=== PATIENT | male | born 1950 | race Caucasian/White ===

== ENCOUNTER 2020-06-20 13:45 | Outpatient (CLI) | payer OTHER, SELFPAY ==
--- NOTE | 2020-06-20 13:56 | USCV_ITS ---
Justin Davis Age: 70 Gender: M : 1950 Exam Date: 06/20/2020 13:52 Ordering Phys: Juan David Resendez DO Technologist: Francy Abraham Exam Location: [facility] [place] Indication: STENOSIS Risk Factors: Previous Vascular Surgery: Known right occlusion, Right Brachial BP: / Left Brachial BP: / Right Left Velocity (cm/s) Spectral Plaque Velocity (cm/s) Spectral Plaque Syst/Diast Broadening Syst/Diast Broadening / Prox CCA 91.70 / 20.20 58.30/ 10.90 Mid CCA 78.30 / 20.90 27.20/ 7.80 Distal CCA 94.80 / 20.90 / Prox ICA 82.30 / 19.20 / Mid ICA 134.40/ 43.90 / Distal ICA 71.00 / 31.50 97.00 ECA 168.60 ICA/CCA 1.72 Antegrade Vertebral Antegrade 47.40/ 17.60 cm/s 38.70/ 16.50 cm/s Tri Subclavian Tri 139.8 81.50 0 FINDINGS Comparison:. 05/23/19. Known occluded right ICA. Right ECA not identified. Abnormal waveforms in the proximal right CCA due to the occlusion distally. Mild elevation of left ICA velocity, no change since the prior exam. Diffuse plaque in the left caroitd system. CONCLUSIONS Left ICA stenosis 50-69%. No interval change in stenosis since prior exam. Known occluded right ICA. Dr. Jackie Salazar DO (Electronically Signed) Final Date: 20 June 2020 15:03 S
== END 2020-06-20 13:46 | disposition home or self-care (01) ==
LOC: US 13:46
PROVIDERS: PCP Emergency Medicine Emergency Medical Services; Visit Provider Emergency Medicine Emergency Medical Services
DX: I65.23 Occlusion and stenosis of bilateral carotid arteries (principal)
CPT/HCPCS: 93880

== ENCOUNTER 2022-05-20 10:11 | Outpatient (CLI) | payer OTHER, SELFPAY ==
--- NOTE | 2022-05-20 | USCV_ITS ---
Justin Davis Age: 72 Gender: M : 1950 Exam Date: 05/20/2022 10:35 Ordering Phys: Juan David Resendez DO Technologist: CT Exam Location: [facility] [place] Indication: BILATERAL STENOSIS/OCCLUSION Risk Factors: Previous Vascular Surgery: Right Brachial BP: / Left Brachial BP: / Right Left Velocity (cm/s) Spectral Plaque Velocity (cm/s) Spectral Plaque Syst/Diast Broadening Syst/Diast Broadening 30.60/ 0.80 Prox CCA 111.90/ 20.20 15.30/ 0.80 Mid CCA 88.50 / 21.10 26.00/ 5.30 Distal CCA 80.60 / 23.80 52.80/ 14.30 Prox ICA 218.60/ 51.70 40.70/ 9.80 Mid ICA 155.40/ 44.40 / Distal ICA 211.60/ 42.30 ECA 162.20 1.73 ICA/CCA 1.95 Antegrade Vertebral Antegrade 72.80/ 22.10 cm/s 70.00/ 19.70 cm/s Tri Subclavian Tri 65.10 88.70 FINDINGS RT CCA OCCLUDED DISTALLY REVERSED ECA FLOWING INTO ANTEGRADE ICA MODERATE STENOSIS ON LEFT CONCLUSIONS Comparison 2020 Known Occluded RIght CCA distally. Reversed ECA with antegrade flow in the ICA Left ICA stenosis 50-69% with progressed velocities compared to previous at the upper end of the range. Moderate atheromatous plaque left carotid bulb/ICA. Recommend CTA in further evaluation Normal antegrade Doppler flow noted in the right vertebral artery. Normal antegrade Doppler flow noted in the left vertebral artery. . Dmitriy Valdovinos MD (Electronically Signed) Final Date: 20 May 2022 17:51 S
== END 2022-05-20 10:12 | disposition home or self-care (01) ==
LOC: RAD 10:15
PROVIDERS: PCP Emergency Medicine Emergency Medical Services; Visit Provider Emergency Medicine Emergency Medical Services
DX: I65.23 Occlusion and stenosis of bilateral carotid arteries (principal)
CPT/HCPCS: 93880

== ENCOUNTER → 2022-08-14 07:49 | Outpatient (BNVA) | payer OTHER, SELFPAY | PROVIDERS: PCP Emergency Medicine Emergency Medical Services; Visit Provider Thoracic Surgery (Cardiothoracic Vascular Surgery) | DX: I65.23 Occlusion and stenosis of bilateral carotid arteries (principal); Z87.891 Personal history of nicotine dependence | CPT/HCPCS: 99203 ==

== ENCOUNTER 2022-09-04 15:07 | Outpatient (CLI) | payer OTHER, SELFPAY ==
--- NOTE | 2022-09-04 15:30 | CT_ITS ---
WS: [id number] CTA NECK TECHNIQUE: Contrast enhanced CTA of the neck with coronal and sagittal reformatted images and maximum intensity projection (MIP) images. NASCET criteria utilized. CLINICAL INFORMATION: CAROTID STENOSIS COMPARISON: None. DLP: 352.[address] scans at [facility] use at least one of these dose optimization techniques: automated e xposure control; mA and/or kV adjustment per patient size (includes targeted exams where dose is matc hed to clinical indication); or iterative reconstruction. FINDINGS: RIGHT: Unchanged RIGHT ICA occlusion. Small amount of residual flow in the common carotid artery. LEFT: LEFT common carotid artery is patent. Dense calcified atheromatous plaque LEFT carotid bulb ext ending into the ICA. Stenosis measures approximately 60-70% with dense calcified atheromatous plaque. This is progressed compared to previous. LEFT ICA remains patent to the skull base. Dense cavernous carotid artery calcification partially visualized. Vertebral arteries are patent. Pro ximal basilar artery is patent. Densely calcified aortic arch. Moderate stenosis at the innominate origin. Subclavian arteries remain patent. Proximal RIGHT common carotid artery is patent. No significant flow in the distal RIGHT common carotid artery. Lung apices are well aerated. Mastoid air cells well aerated. Paranasal sinuses are well aerated. Ret ention cyst or polyp LEFT maxillary sinus measuring 13 mm. Moderate spondylitic changes cervical spin e. Straightening of the normal cervical lordosis. CT/CT angio neck [id number] IMPRESSION: Some images are degraded due to motion and beam Maldonado artifact. 1. Unchanged occlusion RIGHT ICA. Small amount of flow in the RIGHT common car otid artery. 2. Progressed stenosis LEFT proximal ICA with dense calcified atheromatous [place] que. Stenosis measures approximately 60-70%. LEFT ICA remains patent to the [facility] ll base. 3. Both vertebral arteries are patent. Proximal basilar artery is patent. 4. Moderate stenosis at the innominate artery origin which remains patent. Sub clavian arteries are patent.
[2022-09-04] MEDS: iohexol 350 mg/mL 500 mL Btl (per mL) IV (16:06)
== END 2022-09-04 15:08 | disposition home or self-care (01) ==
LOC: RAD 15:08
PROVIDERS: PCP Emergency Medicine Emergency Medical Services; Visit Provider Thoracic Surgery (Cardiothoracic Vascular Surgery)
DX: I65.23 Occlusion and stenosis of bilateral carotid arteries (principal)
CPT/HCPCS: 70498; Q9967

== ENCOUNTER → 2022-10-09 09:06 | Outpatient (BNVA) | payer OTHER, SELFPAY | PROVIDERS: PCP Emergency Medicine Emergency Medical Services; Visit Provider Thoracic Surgery (Cardiothoracic Vascular Surgery) | DX: I65.23 Occlusion and stenosis of bilateral carotid arteries (principal); Z87.891 Personal history of nicotine dependence; Z79.82 Long term (current) use of aspirin | CPT/HCPCS: 99213 ==

== ENCOUNTER 2023-04-13 09:16 | Outpatient (CLI) | payer OTHER, SELFPAY ==
--- NOTE | 2023-04-13 | USCV_ITS ---
Justin Davis Age: 73 Gender: M : 1950 Exam Date: 04/13/2023 09:29 Ordering Phys: Vishal Elkins MD (Andy) ([email or web address] [place]) Technologist: AJAY Exam Location: [facility] [place] Indication: Stenosis Risk Factors: Previous Vascular Surgery: Right Brachial BP: / Left Brachial BP: / Right Left Velocity (cm/s) Spectral Plaque Velocity (cm/s) Spectral Plaque Syst/Diast Broadening Syst/Diast Broadening 31.00/ 5.30 Prox CCA 114.70/ 19.80 8.90 / 3.50 Mid CCA 94.80 / 22.10 26.00/ 5.40 Distal CCA 78.30 / 19.80 76.10/ 17.60 Prox ICA 156.90/ 49.70 76.10/ 40.80 Mid ICA 93.30 / 29.90 39.70/ 17.60 Distal ICA 171.40/ 42.50 102.50 ECA 146.70 2.46 ICA/CCA 1.49 Antegrade Vertebral Antegrade 52.90/ 16.50 cm/s 63.90/ 26.50 cm/s Tri Subclavian Tri 103.5 163.1 0 0 FINDINGS comp 05/20/22 CONCLUSIONS Right ICA stenosis <50%. Right CEA.mild atheromatous plaque right carotid bulb/ICA. Left ICA stenosis 50-69%. Moderate atheromatous plaque left carotid bulb/ICA. Velocities slightly decreased compared to previous. Normal antegrade Doppler flow noted in the right vertebral artery. Normal antegrade Doppler flow noted in the left vertebral artery. Dmitriy Valdovinos MD (Electronically Signed) Final Date: 13 April 2023 12:40 S
== END 2023-04-13 09:17 | disposition home or self-care (01) ==
PROVIDERS: PCP Emergency Medicine Emergency Medical Services; Visit Provider Thoracic Surgery (Cardiothoracic Vascular Surgery)
DX: I65.23 Occlusion and stenosis of bilateral carotid arteries (principal)
CPT/HCPCS: 93880

== ENCOUNTER 2024-03-19 10:32 | Emergency (ER) | payer OTHER, SELFPAY ==
[2024-03-19] VITALS (10 sets, daily range): BP systolic 122–183; BP diastolic 48–85; PULSE 63–81; RESP 20–22; TEMP 36.7; O2SAT 84–95
--- NOTE | 2024-03-19 11:06 | CTR_ITS ---
PROCEDURE INFORMATION: Exam: CT Head Without Contrast Exam date and time: 03/19/2024 11:52 AM Age: 74 years old Clinical indication: Injury or trauma; Fall; Blunt trauma (contusions or hematomas); Additional info: Fall, head injury TECHNIQUE: Imaging protocol: Computed tomography of the head without contrast. Radiation optimization: All CT scans at this facility use at least one of these dose optimization techniques: automated exposure control; mA and/or kV adjustment per patient size (includes targeted exams where dose is matched to clinical indication); or iterative reconstruction. COMPARISON: CT angio headneck* [id number] 07/15/2018 6:39 PM RADIATION DOSE METRICS: Total DLP (mGy-cm): 1183.45 FINDINGS: Brain: No intracranial hemorrhage. There is global parenchymal volume loss. Periventricular white matter hypoattenuation is nonspecific but most likely due to small vessel disease. No evidence of acute territorial infarct or cerebral edema. No mass effect or midline shift. Right parietal encephalomalacia. Cerebral ventricles: Prominent ventricles likely secondary to volume loss. Paranasal sinuses: Visualized sinuses are unremarkable. No fluid levels. Mastoid air cells: Visualized mastoid air cells are well aerated. Bones: Unremarkable. No acute fracture. Soft tissues: Unremarkable. CT/CT head wo con* [id number] IMPRESSION: No acute intracranial findings.
--- NOTE | 2024-03-19 11:06 | CTR_ITS ---
PROCEDURE INFORMATION: Exam: CT Chest Without Contrast; Diagnostic Exam date and time: 03/19/2024 11:55 AM Age: 74 years old Clinical indication: Injury or trauma; Fall; Lower; Blunt trauma (contusions or hematomas); Additional info: Fall, left rib and low back pain TECHNIQUE: Imaging protocol: Diagnostic computed tomography of the chest without contrast. Radiation optimization: All CT scans at this facility use at least one of these dose optimization techniques: automated exposure control; mA and/or kV adjustment per patient size (includes targeted exams where dose is matched to clinical indication); or iterative reconstruction. COMPARISON: CR XR chest 1V [id number] 07/16/2018 3:55 AM RADIATION DOSE METRICS: Total DLP (mGy-cm): 1355.98 FINDINGS: Thyroid: Thyroid is normal. Lungs: Consolidative opacities in the inferior-posterior left upper lobe measuring up to 4.1 cm. Additional consolidative opacities in the bilateral dependent lung bases. Pleural spaces: Small bilateral pleural effusions. Heart: Heart is normal in size. No pericardial effusion. Coronary arteries: Coronary artery calcifications. Lymph nodes: Prominent sub threshold upper mediastinal lymph nodes. Vasculature: Moderate to severe calcific disease of the thoracic aorta and its major branches. Bones/joints: Multilevel thoracic spondylosis. Chronic/healed nondisplaced fracture deformity of the left 9th rib laterally. No acute osseous findings. Soft tissues: Visualized superficial soft tissues are within normal limits. PROCEDURE INFORMATION: Exam: CT Abdomen And Pelvis Without Contrast Exam date and time: 03/19/2024 11:55 AM Age: 74 years old Clinical indication: Injury or trauma; Fall; Lower; Blunt trauma (contusions or hematomas); Additional info: Fall, left rib and low back pain TECHNIQUE: Imaging protocol: Computed tomography of the abdomen and pelvis without contrast. Radiation optimization: All CT scans at this facility use at least one of these dose optimization techniques: automated exposure control; mA and/or kV adjustment per patient size (includes targeted exams where dose is matched to clinical indication); or iterative reconstruction. COMPARISON: CR XR chest 1V [id number] 07/16/2018 3:55 AM RADIATION DOSE METRICS: Total DLP (mGy-cm): 1355.98 FINDINGS: Liver: The liver is unremarkable. Gallbladder and biliary ducts: Status post cholecystectomy. No biliary ductal dilation. Pancreas: Moderate atrophy of the pancreas. No pancreatic ductal dilation. Spleen: The spleen is unremarkable. Adrenal glands: The adrenal glands are unremarkable. Kidneys and ureters: Kidneys are normal. No hydronephrosis or nephrolithiasis. Stomach and bowel: Nonobstructive bowel-gas pattern. Appendix: The appendix is normal. Intraperitoneal space: No significant free fluid in the abdomen or pelvis. Vasculature: Moderate to severe calcific disease of the abdominal aorta and its major branches. No abdominal aortic aneurysm. Lymph nodes: No distinct pathologically enlarged lymphadenopathy. Urinary bladder: Urinary bladder is within normal limits. Reproductive: Visualized reproductive structures are within normal limits. Bones/joints: Multilevel spondylosis. Age-indeterminate compression deformity of the vertebral body L2, with approximately 25% height loss centrally and negligible retropulsion posteriorly. Chronic appearing grade 1 retrolisthesis of L5 on S1. Soft tissues: Small bilateral fat containing inguinal hernias. CT/[place] [id number] IMPRESSION: 1. Small bilateral pleural effusions. 2. Consolidative opacities in the inferoposterior left upper lobe measuring up to 4.1 cm. Additional consolidative opacities in the bilateral dependent lung bases. Overall, these have an appearance most consistent with aspiration pneumonitis in combination with dependent atelectasis. Pulmonary contusion is considered unlikely. An infectious infiltrate is not excluded. Recommend correlation with lab values. Underlying pulmonary nodules versus spiculated mass in the inferior left upper lobe is also not excluded. Recommend follow-up CT chest without contrast in 1-3 months upon resolution of current symptoms. IMPRESSION: 1. Age-indeterminate compression deformity of the vertebral body L2, with approximately 25% height loss centrally and negligible retropulsion posteriorly. Recommend correlation for point tenderness at this location. 2. Chronic appearing grade 1 retrolisthesis of L5 on S1.
[2024-03-19] MEDS: albuterol 2.5 mg/3 mL Neb INHALATION (11:17)
[2024-03-19] MEDS: ipratropium-albuterol 3 mL Neb INHALATION (11:17)
[2024-03-19 11:22] LABS: Basophils % 0.3 %; Eosinophils # 0.1 10^3/uL (0.0-0.8); Eosinophils % 0.8 %; Hematocrit 40.1 % (37-53); Lymphocytes # 0.6 10^3/uL (0.8-4.8); Lymphocytes % 9.3 %; Mean Corpuscular HGB Conc 30.4 g/dL (30-55); Mean Corpuscular Hemoglobin 28.7 pg (27-33); Mean Corpuscular Volume 94.4 fl (82-101); Mean Platelet Volume 10.2 fL (7.4-10.4); Monocytes # 0.9 10^3/uL (0.2-0.9); Neutrophils # 4.53 10^3/uL (1.8-7.7); Neutrophils % 74.1 %; Nucleated Red Blood Cells % 0 %; Platelet Count 237 10^3/cmm (157-399); Red Blood Count 4.25 10^6/uL (3.85-5.65); Red Cell Distribution Width 17.8 % (12.1-15.1); White Blood Count 6.12 10^3/uL (3.29-11.43)
--- NOTE | 2024-03-19 11:35 | ECG_ITS ---
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 Measurements Intervals [place] Rate: 78 P: 0 MS: 0 QRS: 262 QRSD: 142 T: -3 QT: 397 QTc: 453 Interpretive Statements ATRIAL FIBRILLATION RIGHT AXIS DEVIATION [QRS AXIS > 100] RIGHT BUNDLE BRANCH BLOCK [120+ ms QRS DURATION, UPRIGHT V1, 40+ ms S IN I/aVL/V4/V5/V6] PROBABLE SEPTAL MYOCARDIAL INFARCTION , OF INDETERMINATE AGE [35 ms Q WAVE IN V1/V2] Compared to ECG 07/16/2018 10:07:51 Myocardial infarct finding now present Sinus rhythm no longer present Ventricular premature complex(es) no longer present Electronically Signed On 03-19-2024 18:48:01 CDT by Micheal Mcclain M.D. [id number]
[2024-03-19] MEDS: methylPREDNISolone sod succ 125 mg/2 mL INJ IVP (11:36)
[2024-03-19 11:42] LABS: Troponin(5th) Baseline 26 ng/L (0-15)
[2024-03-19 11:43] LABS: Lactic Sepsis W/Reflex 1.3 mmol/L (0.5-2.2)
[2024-03-19 11:48] LABS: ABG PCO2 51.6 mmHg (35-45); ABG PH Result 7.48 (7.35-7.45); Alveolar-Arterial Oxygen Gradi 17.8 mmHg (5-10); Arterial Blood Gas Hematocrit 37.6 % (42-52); Base Excess ABG 12.7 mmol/L (-2.0-2.0); Blood Gas Operator Identificat AMH; Blood Gas Sample Site Brachial, right; Blood Gas Sample Type Arterial; Carboxyhemoglobin 1.4 %THgb (0.4-20.1); HCO3 ABG 38.2 mmol/L (22-26); HGB O2 Sat 88.9 % (95-100); Ionized Calcium Level - ABG 1.2 mmol/L (1.1-1.4); Oxygen Device NC; Oxygen Saturation ABG 91.1; PO2 ABG 58.7 mmHg (80.0-100.0); PO2 FiO2 Ratio Arterial Blood 163; Potassium Level - ABG 3.9 mmol/L (3.5-5.0); Total Hemoglobin 12.3 g/dL (14-18)
[2024-03-19 11:53] LABS: Alanine Aminotransferase 22 U/L (0-41); Albumin Level 3.4 g/dL (3.5-5.2); Alkaline Phosphatase 85 U/L (40-130); Anion Gap 13.8 (5-19); Aspartate Amino Transferase 22 U/L (0-40); Blood Urea Nitrogen 14 mg/dL (8-23); C Reactive Protein 82.3 mg/L (0.0-4.9); Calcium 8.5 mg/dL (8.5-10.5); Carbon Dioxide 34 mmol/L (22-29); Chloride 94 mmol/L (98-107); Creatinine Clr Calc Pharmacy 82.9488; Globulin 2.6 g/dL (1.3-4.6); Glucose 118 mg/dL (65-115); NT Pro B Type Natriuretic Pept 1494 pg/mL (0-450); Osmolality Calculated 288 mOsm/kg (285-295); Potassium 3.8 mmol/L (3.5-5.1); Sodium 138 mmol/L (136-145); Total Bilirubin 0.7 mg/dL (0.15-1.2)
--- NOTE | 2024-03-19 12:21 | ED_ITS ---
HPI - SOB/Dyspnea 2 General: Chief Complaint: Shortness of Breath/Dyspnea Stated Complaint: sob, partial loss of vision Time Seen by Provider: 03/19/24 10:53 History of Present Illness: HPI Narrative: 74-year-old man with a history of morbid obesity, COPD, chronic hypoxemic respiratory failure on 3 L nasal cannula at all times, carotid artery disease status post intervention and on Pradaxa, hypertension, hyperlipidemia, chronic pain syndrome who presents to the emergency room with several complaints. First he says he over the last couple of days has had change in his vision. He says when he covers his left eye. And looks out of his right eye. Vision is blurry in the upper half of his vision. No headaches. Does not describe a curtain coming down. On exam red reflexes reviewed throughout the pupillary field. No altered mental status. No focal motor deficits. He also says he has been more short of breath lately. Increased cough. No increased oxygen requirement. says he is wanting to sleep all of the time. Finally he says he had a fall about a week ago and refused to come into the emergency room. He is having pain in his right lateral rib cage and his low back. This has become much worse and may have been the primary reason he finally decided to come into the emergency room. Related Data Home Medications Medication Instructions Recorded Confirmed albuterol sulfate 90 mcg/actuation 2 puff inhalation Q6H PRN 08/14/22 10/09/22 aerosol inhaler (ProAir HFA) aspirin 81 mg tablet,delayed 81 mg PO DAILY 08/14/22 10/09/22 release cholecalciferol (vitamin D3) 25 25 mcg PO DAILY 08/14/22 10/09/22 mcg (1,000 unit) capsule dabigatran etexilate 150 mg 150 mg PO BID 08/14/22 10/09/22 capsule (Pradaxa) furosemide 20 mg tablet 20 mg PO DAILY 08/14/22 10/09/22 guaifenesin 400 mg tablet 400 mg PO TID 08/14/22 10/09/22 hydrocodone 7.5 mg-acetaminophen 1 tab PO Q6H PRN 08/14/22 10/09/22 325 mg tablet lisinopril 20 mg tablet 20 mg PO DAILY 08/14/22 10/09/22 metoprolol tartrate 50 mg tablet 50 mg PO BID 08/14/22 10/09/22 mometasone 220 mcg/actuation(120 2 inh inhalation DAILY 08/14/22 10/09/22 doses)breath activated powder inhaler (Asmanex Twisthaler) simvastatin 40 mg tablet 40 mg PO DAILY 08/14/22 10/09/22 Previous Rx's Medication Instructions Recorded cyclobenzaprine 5 mg tablet 5 mg PO BEDTIME PRN muscle spasm 03/19/24 #10 tabs doxycycline hyclate 100 mg capsule 100 mg PO BID 7 days #14 caps 03/19/24 oxycodone 10 mg tablet 10 mg PO Q8H PRN pain #30 tabs 03/19/24 prednisone 20 mg tablet 60 mg (3 x 20 mg) PO DAILY #20 tabs 03/19/24 Allergies Allergy/AdvReac Type Severity Reaction Status Date / Time No Known Allergies Allergy Verified 03/19/24 10:45 Review of Systems 2 Narrative: Constitutional symptoms: Negative except as documented in HPI. Skin symptoms: Negative except as documented in HPI. Eye symptoms: Negative except as documented in HPI. ENMT symptoms: Negative except as documented in HPI. Respiratory symptoms: Negative except as documented in HPI. Cardiovascular symptoms: Negative except as documented in HPI. Gastrointestinal symptoms: Negative except as documented in HPI. Genitourinary symptoms: Negative except as documented in HPI. Musculoskeletal symptoms: Negative except as documented in HPI. Neurologic symptoms: Negative except as documented in HPI. Psychiatric symptoms: Negative except as documented in HPI. Endocrine symptoms: Negative except as documented in HPI. PFSH ED 2 PFSH: Medical History (Updated 03/19/24 @ 14:18 by Suzette Ritter MD) 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 Carotid stenosis, bilateral Family History Father CAD (coronary artery disease) Hypertension Mother Cancer Diabetes Hypertension Brother Cancer Diabetes Hypertension Social History Smoking and tobacco/nicotine status: former use of tobacco/nicotine Quit status (tobacco/nicotine): has quit using Year quit tobacco: 2009 Former quit date comment: 2 PACK PER DAY X 40 YEARS Alcohol intake: current Alcohol intake frequency: 3 or more drinks per day Substance/Drug Use: never Household members: spouse Marital status: Number of children: 2 service: Yes Pets and animals: Yes Pets & animals: cat(s) and dog(s) Physical Exam 2 Narrative: EXAM NARRATIVE: General: Alert, no acute distress. Skin: Warm, dry. Head: Normocephalic, atraumatic. Neck: Supple, trachea midline. Eye: Extraocular movements are intact. Reports right upper visual field blurriness. Red reflexes reviewed throughout the pupillary field. Ears, nose, mouth and throat: mucosa moist. Cardiovascular: Regular, Normal peripheral perfusion. Respiratory: Lungs are clear to auscultation, respirations are non-labored, breath sounds are equal, Symmetrical chest wall expansion. Gastrointestinal: Soft, Nontender, Non distended Musculoskeletal: Normal ROM, no deformity. Neurological: Alert and oriented, No focal neurological deficit observed. Psychiatric: Cooperative, appropriate mood & affect. Course 2 Vital Signs: Vital signs: Vital Signs Temperature 98.1 F 03/19/24 10:39 Pulse Rate 63 03/19/24 14:45 Respiratory Rate 22 H 03/19/24 11:45 Blood Pressure 152/68 03/19/24 14:45 Pulse Oximetry 95 03/19/24 14:45 Oxygen Delivery Me thod Room Air 03/19/24 12:00 Oxygen Flow Rate 4 03/19/24 11:36 MDM - SOB/Dyspnea Medical Decision Making Medical decision making: Differential diagnosis including but not limited to and based on the above HPI, review of systems and physical exam: Would have concern for stroke with his vision changes so a head CT was ordered. Likely more an ocular problem and will need to see ophthalmology. With his trauma have ordered a CT of the chest abdomen pelvis to rule out any rib fractures pneumothorax etc. Intra-abdominal or back injuries. With a shortness of breath of ordered an ABG and the lungs can be evaluated with the chest CT. Orders placed to evaluate differential diagnosis based on the above differential, HPI and physical exam EKG: Time 1135. Rate 78. Atrial fibrillation with controlled rate, No ST-T changes, no ectopy, This was reviewed and interpreted by myself the ER physician at 11:40 AM. Repeat EKG: Time 1259. Rate 74. Atrial fibrillation with controlled rate, No ST-T changes, no ectopy, This was reviewed and interpreted by myself the ER physician at 103. No significant changes from EKG done previously today in the emergency room. Lab Review: Laboratory results were reviewed and interpreted by myself the emergency room physician. No leukocytosis. No anemia. BUN and creatinine are normal at 14 and 0.9. Bicarb is elevated at 34 likely compensating for his chronic hypercapnic respiratory failure. AB.48/52/59. With an O2 sat of 89% on 4 L nasal cannula. Some mild hypercapnia that is compensated. I reviewed the patient's medical record. Reexamination: Patient remained stable. No increased work of breathing. No altered mental status. No focal motor deficits. He remained stable on his oxygen. Still with some low back pain. We discussed the pulmonary nodule and that he will need surveillance. Discussed the issues with his eye and he will follow-up with ophthalmology in the next few days. Assessment and plan: Fall Vertebral compression fracture Rib contusion COPD with acute exacerbation Chronic hypoxemic respiratory failure Morbid obesity Pulmonary nodule Vision changes ?Solu-Medrol and breathing treatments here in the emergency room ? Pain medications. He is on a pain contract but I am going to place him on temporary oxycodone for this acute injury to his back. ? Stable on his home 3 to 4 L nasal cannula. - Discharged home - Discussed findings and plan with patient. Answered any questions. - All laboratory values were reviewed and interpreted personally by myself, the ER physician - All imaging was reviewed and interpreted personally by myself, the ER physician. - Evaluation and treatment of this problem were appropriate in the emergency setting Lab Data 03/19/24 11:10 03/19/24 11:10 Labs/Radiology: Radiology Impressions Chest/Abdomen/Pelvis CT 03/19/24 11:06 IMPRESSION: 1. Small bilateral pleural effusions. 2. Consolidative opacities in the inferoposterior left upper lobe measuring up to 4.1 cm. Additional consolidative opacities in the bilateral dependent lung bases. Overall, these have an appearance most consistent with aspiration pneumonitis in combination with dependent atelectasis. Pulmonary contusion is considered unlikely. An infectious infiltrate is not excluded. Recommend correlation with lab values. Underlying pulmonary nodules versus spiculated mass in the inferior left upper lobe is also not excluded. Recommend follow-up CT chest without contrast in 1-3 months upon resolution of current symptoms. IMPRESSION: 1. Age-indeterminate compression deformity of the vertebral body L2, with approximately 25% height loss centrally and negligible retropulsion posteriorly. Recommend correlation for point tenderness at this location. 2. Chronic appearing grade 1 retrolisthesis of L5 on S1. Head CT 03/19/24 11:06 IMPRESSION: No acute intracranial findings. Laboratory Results WBC 6.12 10^3/uL (3.29-11.43) 03/19/24 11:10 RBC 4.25 10^6/uL (3.85-5.65) 03/19/24 11:10 Hgb 12.20 g/dL (11.27-16.99) 03/19/24 11:10 Hct 40.1 % (37-53) 03/19/24 11:10 MCV 94.4 fl (82-101) 03/19/24 11:10 MCH 28.7 pg (27-33) 03/19/24 11:10 MCHC 30.4 g/dL (30-55) 03/19/24 11:10 RDW 17.8 % (12.1-15.1) H 03/19/24 11:10 Plt Count 237 10^3/cmm (157-399) 03/19/24 11:10 MPV 10.2 fL (7.4-10.4) 03/19/24 11:10 Neut % (Auto) 74.1 % 03/19/24 11:10 Lymph % (Auto) 9.3 % 03/19/24 11:10 [place] % (Auto) 15.0 % 03/19/24 11:10 Eos % (Auto) 0.8 % 03/19/24 11:10 Baso % (Auto) 0.3 % 03/19/24 11:10 Neut # (Auto) 4.53 10^3/uL (1.8-7.7) 03/19/24 11:10 Lymph # (Auto) 0.6 10^3/uL (0.8-4.8) L 03/19/24 11:10 [place] # (Auto) 0.9 10^3/uL (0.2-0.9) 03/19/24 11:10 Eos # (Auto) 0.1 10^3/uL (0.0-0.8) 03/19/24 11:10 Baso # (Auto) 0.0 10^3/uL (0.0-0.1) 03/19/24 11:10 Nucleated RBC % (auto) 0 % 03/19/24 11:10 Nucleated RBCs # 0.0 /100WBC 03/19/24 11:10 Specimen Type Arterial 03/19/24 11:35 Sample Site Brachial, right 03/19/24 11:35 ABG pH 7.48 (7.35-7.45) H 03/19/24 11:35 ABG pCO2 51.6 mmHg (35-45) H 03/19/24 11:35 ABG pO2 58.7 mmHg (80.0-100.0) L 03/19/24 11:35 ABG PO2/FiO2 Ratio 163 03/19/24 11:35 ABG HCO3 38.2 mmol/L (22-26) H 03/19/24 11:35 ABG O2 Saturation 91.1 03/19/24 11:35 ABG Base Excess 12.7 mmol/L (-2.0-2.0) H 03/19/24 11:35 Valdo Test N/a 03/19/24 11:35 A-a O2 Gradient 17.8 mmHg (5-10) H 03/19/24 11:35 Hematocrit 37.6 % (42-52) L 03/19/24 11:35 Hgb O2 Saturation 88.9 % (95-100) L 03/19/24 11:35 Carboxyhemoglobin 1.4 %THgb (0.4-20.1) 03/19/24 11:35 Methemoglobin 1.0 % (0.4-1.5) 03/19/24 11:35 Total Hemoglobin 12.3 g/dL (14-18) L 03/19/24 11:35 Sodium 138.0 mmol/L (131-143) 03/19/24 11:35 Potassium 3.9 mmol/L (3.5-5.0) 03/19/24 11:35 Glucose 106.0 mg/dL (70-115) 03/19/24 11:35 Ionized Calcium 1.2 mmol/L (1.1-1.4) 03/19/24 11:35 O2 Delivery Device Nc 03/19/24 11:35 O2 Liters/Min 4.0 % 03/19/24 11:35 FiO2 36.0 % 03/19/24 11:35 Installation And Service Technician ID [facility]h 03/19/24 11:35 Sodium 138 mmol/L (136-145) 03/19/24 11:10 Potassium 3.8 mmol/L (3.5-5.1) 03/19/24 11:10 Chloride 94 mmol/L (98-107) L 03/19/24 11:10 Carbon Dioxide 34 mmol/L (22-29) H 03/19/24 11:10 Anion Gap 13.8 (5-19) 03/19/24 11:10 BUN 14 mg/dL (8-23) 03/19/24 11:10 Creatinine 0.9 mg/dL (0.7-1.2) 03/19/24 11:10 GFR Calculation Not Reportable 03/19/24 11:10 Glucose 118 mg/dL (65-115) H 03/19/24 11:10 Calculated Osmolality 288 mOsm/kg (285-295) 03/19/24 11:10 Lactic Acid 1.3 mmol/L (0.5-2.2) 03/19/24 11:10 Calcium 8.5 mg/dL (8.5-10.5) 03/19/24 11:10 Total Bilirubin 0.7 mg/dL (0.15-1.2) 03/19/24 11:10 AST 22 U/L (0-40) 03/19/24 11:10 ALT 22 U/L (0-41) 03/19/24 11:10 Alkaline Phosphatase 85 U/L (40-130) 03/19/24 11:10 Troponin T Baseline 26 ng/L (0-15) H 03/19/24 11:10 Troponin T 120 Minute 18.91 ng/L (0-15) H 03/19/24 13:22 Delta Troponin T -7.09 ABS# (0-10) L 03/19/24 13:22 C-Reactive Protein 82.3 mg/L (0.0-4.9) H 03/19/24 11:10 NT-Pro-B Natriuret Pep 1494 pg/mL (0-450) H 03/19/24 11:10 Total Protein 6.0 g/dL (6.6-8.7) L 03/19/24 11:10 Albumin 3.4 g/dL (3.5-5.2) L 03/19/24 11:10 Globulin 2.6 g/dL (1.3-4.6) 03/19/24 11:10 Urine Color Yellow (Yellow) 03/19/24 12:16 Urine Appearance Clear (CLEAR) 03/19/24 12:16 Urine pH 7.0 (5-7) 03/19/24 12:16 Ur Specific [place] 1.012 (1.005-1.030) 03/19/24 12:16 Urine Protein Negative (Negative) 03/19/24 12:16 Urine Glucose (UA) Negative (Normal) 03/19/24 12:16 Urine Ketones Negative (Negative) 03/19/24 12:16 Urine Blood Negative (Negative) 03/19/24 12:16 Urine Nitrate Negative (Negative) 03/19/24 12:16 Urine Bilirubin Negative (Negative) 03/19/24 12:16 Urine Urobilinogen 1.0 mg/dL (Negative) 03/19/24 12:16 Ur Leukocyte Esterase Trace (Negative) A 03/19/24 12:16 Urine RBC 0-2 /hpf (0-2) 03/19/24 12:16 Urine WBC 0-5 /hpf (0-5) 03/19/24 12:16 Ur Squamous Epith Cells 0-5 /hpf (0-5) 03/19/24 12:16 Amorphous Sediment Not Reportable 03/19/24 12:16 Urine Bacteria None seen /hpf (NONE) 03/19/24 12:16 Hyaline Casts 1.65 /lpf 03/19/24 12:16 All radiology interpretation(s) finalized by discharge Discharge Plan Discharge Patient Disposition: Home Clinical Impression: Rib contusion, COPD with acute exacerbation, Chronic hypoxemic respiratory failure, Chronic pain syndrome, Morbid obesity, Pulmonary nodules Closed compression fracture of L2 vertebra Qualifiers: Encounter type: initial encounter Qualified Code(s): S32.020A - Wedge compression fracture of second lumbar vertebra, initial encounter for closed fracture Condition: Stable Prescriptions: New doxycycline hyclate 100 mg capsule 100 mg PO BID 7 Days Qty: 14 0RF prednisone 20 mg tablet 60 mg PO DAILY Qty: 20 0RF Rx Instructions: 3 tabs (60 mg) x 3 days. 2 tabs (40 mg) x 3 days. 1 tab (20 mg) x 3 days. 1/2 tab (10 mg) x 4 days cyclobenzaprine 5 mg tablet 5 mg PO BEDTIME PRN (Reason: muscle spasm) Qty: 10 0RF oxycodone 10 mg tablet 10 mg PO Q8H PRN (Reason: pain) Qty: 30 0RF No Action Asmanex Twisthaler 220 mcg/ actuation (120) aerosol powdr breath activated 2 inh inhalation DAILY simvastatin 40 mg tablet 40 mg PO DAILY lisinopril 20 mg tablet 20 mg PO DAILY metoprolol tartrate 50 mg tablet 50 mg PO BID cholecalciferol (vitamin D3) 25 mcg (1,000 unit) capsule 25 mcg PO DAILY hydrocodone-acetaminophen 7.5-325 mg tablet 1 tab PO Q6H PRN aspirin 81 mg tablet,delayed release (DR/EC) 81 mg PO DAILY albuterol sulfate [ProAir HFA] 90 mcg/actuation HFA aerosol inhaler 2 puff inhalation Q6H PRN furosemide 20 mg tablet 20 mg PO DAILY dabigatran etexilate [Pradaxa] 150 mg capsule 150 mg PO BID guaifenesin 400 mg tablet 400 mg PO TID Discharge Orders: Discharge ED (Routine); Ordered 03/19/24 Ordered By: Suzette Ritter Referrals: Juan David Resendez DO [Primary Care Provider] - Discharge Diet: Usual diet Discharge Activity: Resume usual activity Patient Instructions: Vertebral Compression Fracture (ED), Pulmonary Nodules (ED), Opioid Safety Activity Restrictions/Additional Instructions: A pulmonary nodule was seen on imaging. This will need follow up imaging with your primary provider. Please schedule an appointment concerning this. Thank you for choosing [facility] for your healthcare needs today. Please realize this is an emergency room and that we are providing you with a medical screening exam and this may not be complete and all inclusive of all the testing and or work up that you may need to determine your ailment or severity of your illness. You have been screened and evaluated and felt safe for discharge. Health conditions do change or evolve sometimes and as such it is important that you follow up with your Primary Doctor to be re checked, 3-5 days is a general good time frame for follow up. You are always welcome to return to the ED for re assessment if your symptoms are worsening or you have new concerns Coding Level of Care Code ED Hand Knitter for Chg Fwd
[2024-03-19 12:26] LABS: Bilirubin Urine Negative (Negative); Blood Urine Negative (Negative); Glucose Urine UA Negative (Normal); Ketones Urine Negative (Negative); Leukocyte Esterase Urine Trace (Negative); Nitrate Urine Negative (Negative); Protein Urine Negative (Negative); Specific Gravity, Urine 1.012 (1.005-1.030); Urine Appearance Clear (CLEAR); Urine Color Yellow (Yellow)
[2024-03-19 12:29] LABS: Bacteria Urine None Seen /hpf; Hyaline Casts Urine 1.65 /lpf; RBC Urine 0-2 /hpf (0-2); Squamous Epithelial Cell Urine 0-5 /hpf (0-5); WBC Urine 0-5 /hpf (0-5)
[2024-03-19] MEDS: HYDROcodone-acetaminophen 5-325 mg Tablet 1 TAB PO (12:50)
--- NOTE | 2024-03-19 12:59 | ECG_ITS ---
[facility] Test Date: 2024-03-19 Pat Name: Justin Davis Department: Room: Gender: Male [place]: : 1950 Requested By: Suzette Patino Order Number: [id number] Duc MD: Micheal Mcclain M.D. Measurements Intervals [place] Rate: 74 P: 0 TN: 0 QRS: -86 QRSD: 146 T: -6 QT: 409 QTc: 454 Interpretive Statements ATRIAL FIBRILLATION RIGHT BUNDLE BRANCH BLOCK [120+ ms QRS DURATION, UPRIGHT V1, 40+ ms S IN I/aVL/V4/V5/V6] LEFT ANTERIOR FASCICULAR BLOCK [QRS AXIS <= -45, QR IN I, RS IN II] Compared to ECG 03/19/2024 11:35:29 Left anterior fascicular block now present Right-axis deviation no longer present Myocardial infarct finding no longer present Electronically Signed On 03-19-2024 18:52:13 CDT by Micheal Mcclain M.D. [id number]
[2024-03-19 13:52] LABS: Troponin 5 2HR 18.91 ng/L (0-15)
[2024-03-19 14:05] LABS: Troponin 5 2HR Delta -7.09 ABS# (0-10)
== END 2024-03-19 14:32 | disposition home or self-care (01) ==
PROVIDERS: Emergency Provider Emergency Medicine; PCP Emergency Medicine Emergency Medical Services
DX: J44.1 Chronic obstructive pulmonary disease with (acute) exacerbation (principal); J96.11 Chronic respiratory failure with hypoxia; G89.4 Chronic pain syndrome; E66.01 Morbid (severe) obesity due to excess calories; Z68.41 Body mass index [BMI] 40.0-44.9, adult; R91.8 Other nonspecific abnormal finding of lung field; S32.020A Wedge compression fracture of second lumbar vertebra, initial encounter for closed fracture; S20.211A Contusion of right front wall of thorax, initial encounter; Z79.82 Long term (current) use of aspirin; I48.91 Unspecified atrial fibrillation; Z87.891 Personal history of nicotine dependence; Z99.81 Dependence on supplemental oxygen; I10 Essential (primary) hypertension; E78.5 Hyperlipidemia, unspecified; W19.XXXA Unspecified fall, initial encounter
CPT/HCPCS: 36415; 36600; 70450; 71250; 74176; 80051; 80053; 81001; 82330; 82805; 83605; 83880; 84484; 85025; 86140; 93005; 94640; 96374; 99285; J2919; J7613

== ENCOUNTER 2024-05-19 10:28 | Outpatient (CLI) | payer OTHER, SELFPAY ==
--- NOTE | 2024-05-19 10:33 | MR_ITS ---
WS: [id number] MRI HEAD/ORBITS WITH AND WITHOUT CONTRAST. COMPARISON: CT head 03/19/2024 Multiplanar, multisequence imaging is performed with and without contrast. MultiHance 20 mL. Symmetric appearance of the orbits and globes. Normal signal within the globes. Optic nerves are symm etric in size with no enhancement. No enlargement. Extraocular muscles are all normal size. Normal op tic chiasm and optic radiations. No enhancing mass. No optic neuritis. Normal diffusion imaging. No evidence for an acute infarct. Chronic infarct with encephalomalacia and surrounding gliosis centered in the posterior RIGHT parietal lobe. No enhancement on the postcontras t imaging. There are a few additional scattered T2 and FLAIR signal hyperintensities throughout the w romulo matter slightly greater distribution on the RIGHT. Prior lacunar infarct in the LEFT thalamus. M oderate volume loss and atrophy in the cerebrum. Mild cerebellar atrophy. No prior cerebellar infarct . Ventricles and extra-axial spaces are mildly prominent on the basis of central and peripheral atrophy . No enhancing masses. No vascular malformations. No paranasal sinus disease. Mastoids are clear. Normal calvarium. MR/MR head orbits wo/w* [id number] IMPRESSION: 1. Normal appearance of the orbits and globes. 2. No optic neuritis or mass. 3. No mass effect upon the optic chiasm. 4. 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 5. Prior LEFT thalamic infarct. 6. Mild small vessel ischemic disease, greater throughout the RIGHT white amie er.
[2024-05-19] MEDS: gadobenate dimeglumine 20 mL vial IV (11:30)
== END 2024-05-19 10:29 | disposition home or self-care (01) ==
LOC: RAD 10:30
PROVIDERS: PCP Nurse Practitioner Family; Visit Provider Student in an Organized Health Care Education/Training Program
DX: G31.9 Degenerative disease of nervous system, unspecified (principal); H53.139 Sudden visual loss, unspecified eye; Z86.73 Personal history of transient ischemic attack (TIA), and cerebral infarction without residual deficits; G93.89 Other specified disorders of brain; I63.81 Other cerebral infarction due to occlusion or stenosis of small artery
CPT/HCPCS: 70543; 70553; A9577

== ENCOUNTER 2024-10-01 08:34 | Inpatient (IN) | payer OTHER, SELFPAY ==
[2024-10-01] VITALS (33 sets, daily range): BP systolic 94–203; BP diastolic 53–117; PULSE 66–87; RESP 16–27; TEMP 36.8; O2SAT 84–97; BMI 43.7
--- NOTE | 2024-10-01 08:37 | XRR_ITS ---
PROCEDURE INFORMATION: Exam: XR Chest Exam date and time: 10/01/2024 8:57 AM Age: 74 years old Clinical indication: Cough and dyspnea; Additional info: Dyspnea/cough TECHNIQUE: Imaging protocol: Radiologic exam of the chest. Views: 1 view. Total images: 1 COMPARISON: [place] [id number] 03/19/2024 11:55 AM chest x-ray 07/16/2018 FINDINGS: Lungs: Bibasilar and peripheral right mid lung predominantly interstitial densities are noted, representing a change from previous. Pleural spaces: Blunting of the costophrenic angles, consistent with small pleural effusions or pleural thickening. Heart/Mediastinum: Heart appears enlarged as compared with 07/16/2018. Bones/joints: No acute osseous abnormality identified. XR/XR chest 1V portable [id number] IMPRESSION: 1. Cardiomegaly 2. Bibasilar and right midlung opacities which may relate to aspiration, atelectasis or early pneumonia particularly at the right lung base. 3. Mild small bilateral pleural effusions.
--- NOTE | 2024-10-01 08:42 | ECG_ITS ---
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 Measurements Intervals [place] Rate: 84 P: 38 TX: 190 QRS: 259 QRSD: 157 T: 41 QT: 416 QTc: 493 Interpretive Statements SINUS RHYTHM WITH OCCASIONAL SUPRAVENTRICULAR PREMATURE COMPLEXES RIGHT AXIS DEVIATION [QRS AXIS > 100] RIGHT BUNDLE BRANCH BLOCK [120+ ms QRS DURATION, UPRIGHT V1, 40+ ms S IN I/aVL/V4/V5/V6] INTERPRETATION BASED ON A DEFAULT AGE OF 40 YEARS Compared to ECG 03/19/2024 12:59:25 Right-axis deviation now present Atrial fibrillation no longer present Left anterior fascicular block no longer present Electronically Signed On 10-01-2024 17:57:51 ASSISTANT BRAND MANAGER by Gianfranco Choudhary M.D. [email or web address] [id number]
[2024-10-01 08:55] LABS: Basophils % 0.2 %; Eosinophils # 0.1 10^3/uL (0.0-0.8); Eosinophils % 0.9 %; Lymphocytes # 0.8 10^3/uL (0.8-4.8); Lymphocytes % 8.3 %; Mean Corpuscular HGB Conc 27.8 g/dL (30-55); Mean Corpuscular Hemoglobin 24.1 pg (27-33); Mean Corpuscular Volume 86.5 fl (82-101); Mean Platelet Volume 11.8 fL (7.4-10.4); Monocytes # 1.1 10^3/uL (0.2-0.9); Neutrophils # 7.68 10^3/uL (1.8-7.7); Neutrophils % 79.4 %; Nucleated Red Blood Cells % 0 %; Platelet Count 221 10^3/cmm (157-399); Red Cell Distribution Width 17.2 % (12.1-15.1); White Blood Count 9.67 10^3/uL (3.29-11.43)
--- NOTE | 2024-10-01 08:58 | W.ED.SOB ---
HPI - SOB/Dyspnea General: Chief Complaint: Shortness of Breath/Dyspnea Stated Complaint: sob Time Seen by Provider: 10/01/24 08:37 History of Present Illness: HPI Narrative: 74-year-old male presents emergency room with complaints of shortness of breath. He states his symptoms have been progressively worsening for the last 3 days typically is on 2 to 3 L by nasal cannula at home while at rest he will often have to increase it to 5 when he is up and ambulatory he has been titrating up and now he is requiring 5 at rest. EMS reported that when they encountered him he had sats at around 67 to 70% when he arrived here he is on 10 L by nonrebreather. Staff titrated him back down to 5 L by nasal cannula when I came to see the patient he satting around 94%. He denies any hemoptysis he does have a slight productive cough. He did use his albuterol inhaler this morning he had slight improvement from that he also has a little bit of chest discomfort he describes a slight pressure but he states that is chronic and has not really changed. He has noticed slight increase in swelling in his legs and noticed he has more difficult time with breathing when he lies down. He has not noted a fever at home. Associated symptoms: Reports chest congestion and orthopnea; Deny abdominal pain, chest pain or fever(s) Related Data Home Medications ?Medication ?Instructions ?Recorded ?Confirmed aspirin 81 mg tablet,delayed 81 mg PO DAILY 08/14/22 10/01/24 release cholecalciferol (vitamin D3) 25 25 mcg PO DAILY 08/14/22 10/01/24 mcg (1,000 unit) capsule dabigatran etexilate 150 mg 150 mg PO BID 08/14/22 10/01/24 capsule (Pradaxa) furosemide 20 mg tablet 20 mg PO DAILY 08/14/22 10/01/24 guaifenesin 400 mg tablet 400 mg PO TID 08/14/22 10/01/24 hydrocodone 7.5 mg-acetaminophen 1 tab PO Q6H PRN Pain 08/14/22 10/01/24 325 mg tablet lisinopril 20 mg tablet 20 mg PO DAILY 08/14/22 10/01/24 metoprolol tartrate 50 mg tablet 50 mg PO BID 08/14/22 10/01/24 mometasone 220 mcg/actuation(120 2 inh inhalation DAILY 08/14/22 10/01/24 doses)breath activated powder inhaler (Asmanex Twisthaler) simvastatin 40 mg tablet 40 mg PO DAILY 08/14/22 10/01/24 albuterol sulfate 90 mcg/actuation 2 puff inhalation Q6H PRN 10/01/24 10/01/24 aerosol inhaler Shortness Of Breath Previous Rx's ?Medication ?Instructions ?Recorded cyclobenzaprine 5 mg tablet 5 mg PO BEDTIME PRN muscle spasm 03/19/24 #10 tabs Allergies Allergy/AdvReac Type Severity Reaction Status Date / Time No Known Allergies Allergy Verified 03/19/24 10:45 Review of Systems Const: Denies: fever(s) or chills Card: Reports: swelling of feet/ankles, dyspnea on exertion and orthopnea; Denies: chest pain Resp: Reports: dyspnea, non-productive cough, wheezing and chest congestion GI: Denies: abdominal pain : Denies: dysuria, urinary frequency or urinary urgency Musc: Denies: neck pain or back pain Skin/Breast: Denies: rash PFSH ED PFSH: Medical History 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 Carotid stenosis, bilateral Family History Father CAD (coronary artery disease) Hypertension Mother Cancer Diabetes Hypertension Brother Cancer Diabetes Hypertension Social History Smoking and tobacco/nicotine status: former use of tobacco/nicotine Quit status (tobacco/nicotine): has quit using Year quit tobacco: 2009 Former quit date comment: 2 PACK PER DAY X 40 YEARS Alcohol intake: current Alcohol intake frequency: 3 or more drinks per day Substance/Drug Use: never Household members: spouse Marital status: Number of children: 2 service: Yes Pets and animals: Yes Pets & animals: cat(s) and dog(s) Physical Exam Const: GENERAL APPEARANCE: cooperative ORIENTATION/CONSCIOUSNESS: Yes awake, Yes oriented to person, Yes oriented to place and Yes oriented to time HENMT: COMMON NORMALS: normocephalic, atraumatic and hearing grossly normal bilaterally HEAD & SCALP: normocephalic and atraumatic Resp: EFFORT & INSPECTION: Yes tachypneic, Yes labored and Yes uses accessory muscles AUSCULTATION: rhonchi and wheezes Cardio: COMMON NORMALS: regular rate, regular rhythm and No murmurs present (Cardio) RATE: regular rate RHYTHM: regular rhythm GI: COMMON NORMALS: Soft to palpation and No hepatosplenomegaly present AUSCULTATION: Yes normoactive bowel sounds PALPATION: Yes Soft to palpation, No Tenderness to palpation present (GI), No Guarding due to palpation present (GI) and Yes No hepatosplenomegaly present Extremity: COMMON NORMALS: normal to inspection, capillary refill normal and no calf tenderness OTHER: 1-2+ edema lower extremities Neuro: SENSORIUM/ORIENTATION: Yes oriented to person, Yes oriented to place and Yes oriented to time Skin: COMMON NORMALS: no rashes or lesions noted GENERAL SKIN EXAM: no rashes or lesions noted Course Vital Signs: Vital signs: Vital Signs Temperature 98.3 F 10/01/24 08:40 Pulse Rate 76 10/01/24 15:30 Respiratory Rate 20 H 10/01/24 15:30 Blood Pressure 158/90 10/01/24 15:30 Pulse Oximetry 92 10/01/24 15:30 Oxygen Delivery Me thod Nasal Cannula 10/01/24 15:11 Oxygen Flow Rate 4 10/01/24 15:11 MDM - SOB/Dyspnea Medical Decision Making Patient has a community-acquired pneumonia with acute hypoxemic respiratory failure exacerbation COPD. Will start him on IV antibiotics. His hemoglobin is down to 9.4 which is new for him he will need further evaluation for this. His ABG showed a pCO2 of 51 pO2 of 72 he seems to be well compensated at this point. Tropes trended negative. EKG did not show anything acute. Flu COVID and RSV were negative as well discussed with hospitalist orders written. Medical Records I reviewed the patient's medical records. Lab Data I reviewed the patient's lab results. 10/01/24 15:59 10/01/24 08:50 Labs/Radiology: Radiology Impressions Chest X-Ray 10/01/24 08:37 IMPRESSION: 1. Cardiomegaly 2. Bibasilar and right midlung opacities which may relate to aspiration, atelectasis or early pneumonia particularly at the right lung base. 3. Mild small bilateral pleural effusions. Laboratory Results WBC 9.67 10^3/uL (3.29-11.43) 10/01/24 08:50 RBC 3.70 10^6/uL (3.85-5.65) L 10/01/24 08:50 Hgb 8.90 g/dL (11.27-16.99) L 10/01/24 08:50 Hct 32.0 % (37-53) L 10/01/24 08:50 MCV 86.5 fl (82-101) 10/01/24 08:50 MCH 24.1 pg (27-33) L 10/01/24 08:50 MCHC 27.8 g/dL (30-55) L 10/01/24 08:50 RDW 17.2 % (12.1-15.1) H 10/01/24 08:50 Plt Count 221 10^3/cmm (157-399) 10/01/24 08:50 MPV 11.8 fL (7.4-10.4) H 10/01/24 08:50 Neut % (Auto) 79.4 % 10/01/24 08:50 Lymph % (Auto) 8.3 % 10/01/24 08:50 Baca % (Auto) 11.0 % 10/01/24 08:50 Eos % (Auto) 0.9 % 10/01/24 08:50 Baso % (Auto) 0.2 % 10/01/24 08:50 Neut # (Auto) 7.68 10^3/uL (1.8-7.7) 10/01/24 08:50 Lymph # (Auto) 0.8 10^3/uL (0.8-4.8) 10/01/24 08:50 [place]aca # (Auto) 1.1 10^3/uL (0.2-0.9) H 10/01/24 08:50 Eos # (Auto) 0.1 10^3/uL (0.0-0.8) 10/01/24 08:50 Baso # (Auto) 0.0 10^3/uL (0.0-0.1) 10/01/24 08:50 Nucleated RBC % (auto) 0 % 10/01/24 08:50 Nucleated RBCs # 0.0 /100WBC 10/01/24 08:50 Specimen Type Arterial 10/01/24 08:55 Sample Site Brachial, right 10/01/24 08:55 ABG pH 7.39 (7.35-7.45) 10/01/24 08:55 ABG pCO2 51.0 mmHg (35-45) H 10/01/24 08:55 ABG pO2 71.5 mmHg (80.0-100.0) L 10/01/24 08:55 ABG PO2/FiO2 Ratio 178 10/01/24 08:55 ABG HCO3 31.0 mmol/L (22-26) H 10/01/24 08:55 ABG O2 Saturation 93.7 10/01/24 08:55 ABG Base Excess 5.3 mmol/L (-2.0-2.0) H 10/01/24 08:55 Valdo Test N/a 10/01/24 08:55 A-a O2 Gradient 19.9 mmHg (5-10) H 10/01/24 08:55 Hematocrit 26.7 % (42-52) L 10/01/24 08:55 Hgb O2 Saturation 92.1 % (95-100) L 10/01/24 08:55 Carboxyhemoglobin 1.8 %THgb (0.4-20.1) 10/01/24 08:55 Methemoglobin 0.0 % (0.4-1.5) L 10/01/24 08:55 Total Hemoglobin 8.7 g/dL (14-18) L 10/01/24 08:55 Sodium 138.0 mmol/L (131-143) 10/01/24 08:55 Potassium 3.5 mmol/L (3.5-5.0) 10/01/24 08:55 Glucose 156.0 mg/dL (70-115) H 10/01/24 08:55 Ionized Calcium 1.2 mmol/L (1.1-1.4) 10/01/24 08:55 O2 Delivery Device Nc 10/01/24 08:55 O2 Liters/Min 5.0 % 10/01/24 08:55 FiO2 40.0 % 10/01/24 08:55 Mold Designer ID Amh 10/01/24 08:55 Sodium 137 mmol/L (136-145) 10/01/24 08:50 Potassium 3.7 mmol/L (3.5-5.1) 10/01/24 08:50 Chloride 97 mmol/L (98-107) L 10/01/24 08:50 Carbon Dioxide 27 mmol/L (22-29) 10/01/24 08:50 Anion Gap 16.7 (5-19) 10/01/24 08:50 BUN 19 mg/dL (8-23) 10/01/24 08:50 Creatinine 1.2 mg/dL (0.7-1.2) 10/01/24 08:50 GFR Calculation Not Reportable 10/01/24 08:50 Glucose 148 mg/dL (65-115) H 10/01/24 08:50 Estimat Average Glucose 108 10/01/24 08:50 Hemoglobin A1c 5.4 % (4.0-6.0) 10/01/24 08:50 Calculated Osmolality 289 mOsm/kg (285-295) 10/01/24 08:50 Calcium 8.6 mg/dL (8.5-10.5) 10/01/24 08:50 Iron 27 ug/dL (59-158) L 10/01/24 08:50 Ferritin 16 ng/mL (30-400) L 10/01/24 08:50 Total Bilirubin 0.5 mg/dL (0.15-1.2) 10/01/24 08:50 AST 18 U/L (0-40) 10/01/24 08:50 ALT 10 U/L (0-41) 10/01/24 08:50 Alkaline Phosphatase 66 U/L (40-130) 10/01/24 08:50 Troponin T Baseline 32 ng/L (0-15) H 10/01/24 08:50 Troponin T 120 Minute 32.86 ng/L (0-15) H 10/01/24 10:26 Delta Troponin T 0.86 ABS# (0-10) 10/01/24 10:26 C-Reactive Protein 46.0 mg/L (0.0-4.9) H 10/01/24 08:50 NT-Pro-B Natriuret Pep 4327 pg/mL (0-450) H 10/01/24 08:50 Total Protein 6.4 g/dL (6.6-8.7) L 10/01/24 08:50 Albumin 3.4 g/dL (3.5-5.2) L 10/01/24 08:50 Globulin 3.0 g/dL (1.3-4.6) 10/01/24 08:50 Triglycerides 114 mg/dL (0-150) 10/01/24 08:50 Cholesterol 127 mg/dL (0-200) 10/01/24 08:50 LDL Cholesterol, Calc 57 mg/dL (50-129) 10/01/24 08:50 HDL Cholesterol 47 mg/dL (60-100) L 10/01/24 08:50 LDL/HDL Ratio 1.21 RATIO (0.00-3.22) 10/01/24 08:50 Cholesterol/HDL Ratio 2.70 mg/dL (1.0-5.00) 10/01/24 08:50 Procalcitonin 0.14 ng/mL (0-0.5) 10/01/24 08:50 Procalcitonin 0.14 ng/mL (0-0.5) 10/01/24 08:50 TSH 2.60 uIU/mL (0.27-4.20) 10/01/24 08:50 Urine Color Yellow (Yellow) 10/01/24 09:30 Urine Appearance Clear (CLEAR) 10/01/24 09:30 Urine pH 5.5 (5-7) 10/01/24 09:30 Ur Specific [place] 1.017 (1.005-1.030) 10/01/24 09:30 Urine Protein 1+ (Negative) A 10/01/24 09:30 Urine Glucose (UA) Negative (Normal) 10/01/24 09:30 Urine Ketones Negative (Negative) 10/01/24 09:30 Urine Blood Negative (Negative) 10/01/24 09:30 Urine Nitrate Negative (Negative) 10/01/24 09:30 Urine Bilirubin Negative (Negative) 10/01/24 09:30 Urine Urobilinogen 0.2 mg/dL (Negative) 10/01/24 09:30 Ur Leukocyte Esterase Trace (Negative) A 10/01/24 09:30 Urine RBC 0-2 /hpf (0-2) 10/01/24 09:30 Urine WBC 0-5 /hpf (0-5) 10/01/24 09:30 Ur Squamous Epith Cells 0-5 /hpf (0-5) 10/01/24 09:30 Amorphous Sediment Not Reportable 10/01/24 09:30 Urine Bacteria None seen /hpf (NONE) 10/01/24 09:30 Hyaline Casts 1.21 /lpf 10/01/24 09:30 Influenza A (PCR) Negative (Negative) 10/01/24 09:20 Influenza Type B (PCR) Negative (Negative) 10/01/24 09:20 RSV (PCR) Negative (Negative) 10/01/24 09:20 SARS-CoV-2 (PCR) Negative (Negative) 10/01/24 09:20 All radiology interpretation(s) finalized by discharge Discharge Plan Discharge Patient Disposition: Admitted As Inpatient Admit Provider: Colton Burnett Clinical Impression: Community acquired pneumonia, Acute exacerbation of chronic obstructive airways disease, CHF exacerbation, Acute anemia Condition: Stable Coding Level of Care 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
[2024-10-01 09:06] LABS: ABG PH Result 7.39 (7.35-7.45); Alveolar-Arterial Oxygen Gradi 19.9 mmHg (5-10); Arterial Blood Gas Hematocrit 26.7 % (42-52); Base Excess ABG 5.3 mmol/L (-2.0-2.0); Blood Gas Operator Identificat AMH; Blood Gas Sample Site Brachial, right; Blood Gas Sample Type Arterial; Carboxyhemoglobin 1.8 %THgb (0.4-20.1); HGB O2 Sat 92.1 % (95-100); Ionized Calcium Level - ABG 1.2 mmol/L (1.1-1.4); Oxygen Device NC; Oxygen Saturation ABG 93.7; PO2 ABG 71.5 mmHg (80.0-100.0); PO2 FiO2 Ratio Arterial Blood 178; Potassium Level - ABG 3.5 mmol/L (3.5-5.0); Total Hemoglobin 8.7 g/dL (14-18)
[2024-10-01 09:13] LABS: Troponin(5th) Baseline 32 ng/L (0-15)
[2024-10-01 09:19] LABS: Alanine Aminotransferase 10 U/L (0-41); Albumin Level 3.4 g/dL (3.5-5.2); Alkaline Phosphatase 66 U/L (40-130); Anion Gap 16.7 (5-19); Aspartate Amino Transferase 18 U/L (0-40); Blood Urea Nitrogen 19 mg/dL (8-23); Calcium 8.6 mg/dL (8.5-10.5); Carbon Dioxide 27 mmol/L (22-29); Chloride 97 mmol/L (98-107); Creatinine Clr Calc Pharmacy 61.5291; Glucose 148 mg/dL (65-115); Osmolality Calculated 289 mOsm/kg (285-295); Potassium 3.7 mmol/L (3.5-5.1); Sodium 137 mmol/L (136-145); Total Bilirubin 0.5 mg/dL (0.15-1.2); Total Protein 6.4 g/dL (6.6-8.7)
[2024-10-01 09:25] LABS: Procalcitonin 0.14 ng/mL (0-0.5)
--- NOTE | 2024-10-01 09:33 | PC.NURSE ---
pt very agitated that door remains closed; this nurse educated on needing to keep other pt's privacy. pt states if you understood us and PTSD this nurse educated pt on policy and pt raised voice stating YOU DONT UNDERSTAND PTSD LEAVE ME ALONE GET OUT .
[2024-10-01 09:42] LABS: Bilirubin Urine Negative (Negative); Blood Urine Negative (Negative); Glucose Urine UA Negative (Normal); Ketones Urine Negative (Negative); Leukocyte Esterase Urine Trace (Negative); Nitrate Urine Negative (Negative); Protein Urine 1+ (Negative); Specific Gravity, Urine 1.017 (1.005-1.030); Urine Appearance Clear (CLEAR); Urine Color Yellow (Yellow); Urobilinogen Urine 0.2 mg/dL (Negative); pH Urine 5.5 (5-7)
--- NOTE | 2024-10-01 09:45 | PC.PHAR ---
[facility]. [facility] Pt states nothing has changed on his med list in the last 6 months. Verified medications via last [facility] list from [facility], not including temporary ED Provider rx's for short term use.
[2024-10-01 09:47] LABS: NT Pro B Type Natriuretic Pept 4327 pg/mL (0-450)
[2024-10-01 09:48] LABS: Add Urine Microscopic? YES; Bacteria Urine None Seen /hpf; Hyaline Casts Urine 1.21 /lpf; RBC Urine 0-2 /hpf (0-2); Squamous Epithelial Cell Urine 0-5 /hpf (0-5); WBC Urine 0-5 /hpf (0-5)
[2024-10-01 10:01] LABS: Influenza A NEGATIVE (Negative); Influenza B NEGATIVE (Negative); Respiratory Syncytial Virus Ce NEGATIVE (Negative); SARS-CoV-2 PCR NEGATIVE (Negative)
--- NOTE | 2024-10-01 10:28 | ECG_ITS ---
[facility]: 2024[facility]01 Pat Name: Justin Davis Department: Room: Gender: Male On Air Personality: : 1950 Requested By: Masismo Patino Order Number: [id number] Duc MD: Gianfranco Choudhary M.D. Measurements Intervals [place] Rate: 65 P: 21 [place]: 208 QRS: 163 QRSD: 147 T: 50 QT: 453 QTc: 474 Interpretive Statements SINUS RHYTHM WITH OCCASIONAL SUPRAVENTRICULAR PREMATURE COMPLEXES RIGHT BUNDLE BRANCH BLOCK [120+ ms QRS DURATION, UPRIGHT V1, 40+ ms S IN I/aVL/V4/V5/V6] LEFT POSTERIOR FASCICULAR BLOCK [QRS AXIS > 109, INFERIOR Q] Compared to ECG 10/01/2024 08:42:41 Left posterior fascicular block now present Right-axis deviation no longer present Electronically Signed On 10-01-2024 19:26:56 SPEECH AND HEARING DIRECTOR by Gianfranco Choudhary M.D. [email or web address]
[2024-10-01 10:50] LABS: Troponin 5 2HR 32.86 ng/L (0-15); Troponin 5 2HR Delta 0.86 ABS# (0-10)
[2024-10-01] MEDS: ipratropium-albuterol 3 mL Neb INHALATION ×3 (10:59→20:40)
--- NOTE | 2024-10-01 11:12 | PC.NURSE ---
antibiotics delayed d/t needing blood cultures drawn
--- NOTE | 2024-10-01 11:16 | USCV_ITS ---
Justin Davis Age: 74 Gender: M : 1950 Exam Date: 10/01/2024 16:50 Ordering Phys: Colton Burnett MD Technologist: Darrick Araujo Exam Location: [facility] [place] Indication: sob BP: 158 / 90 HR: 84 Rhythm: Sinus Technical Quality: Adequate MEASUREMENTS (Male / Female) Normal Values 2D ECHO LV Diastolic Diameter PLAX 4.5 cm 4.2 - 5.9 / 3.9 - 5.3 cm IVS Diastolic Thickness 1.0 cm 0.6 - 1.0 / 0.6 - 0.9 cm IVS Systolic Thickness 1.4 cm LVPW Diastolic Thickness 1.5 cm 0.6 - 1.0 / 0.6 - 0.9 cm LVPW Systolic Thickness 1.7 cm LVOT Diameter 2.3 cm LV Ejection Fraction 2D Teich 61.9 % LV Ejection Fraction MOD 4C 68.2 % LV Ejection Fraction MOD 2C 71.3 % LV Ejection Fraction 2C AL 71.9 % LA Diameter 4.1 cm RA Systolic Volume 4C AL 70.0 ml RA Systolic Volume 4C MOD 70.9 ml LA Sys Volume AL 71.1 cm cubed LA Sys Volume Index AL 30.2 cm cubed/m squared Aorta at Sinotubular Diameter 2.4 cm IVC Diameter 1.6 cm M-MODE LA Ao Ratio MM 0.8 AV Cusp Separation MM 2.1 cm DOPPLER AV Peak Velocity 149.0 cm/s LVOT Peak Velocity 106.0 cm/s AV Area Cont Eq vti 3.1 cm squared AV Area Cont Eq pk 3.0 cm squared MV Peak Velocity 106.0 cm/s MV Area PHT 4.5 cm squared Mitral E to A Ratio 0.7 TV Peak Velocity 285.0 cm/s TR Peak Velocity 309.0 cm/s TR Peak Gradient 38.2 mmHg TR Mean Velocity 238.0 cm/s TR Mean Gradient 24.9 mmHg TR Velocity Time Integral 91.9 cm PV Peak Velocity 95.0 cm/s RV Ejection Time 0.3 s FINDINGS Left Ventricle LV systolic function is normal with EF of 55-60%. No regional wall motion abnrmalities. Grade 1 diastolic dysfunction Right Ventricle Normal in size and function Right Atrium Dilated Left Atrium Normal in size Mitral Valve Structurally normal mitral valve. Mild mitral regurgitation Aortic Valve Grossly normal. No significant stenosis or regurgitation. Tricuspid Valve Insufficient TR jet to calculate RVSP Pulmonic Valve Not well visualized Pericardium Normal Aorta Normal in size IVC Appears to be normal CONCLUSIONS LV systolic function is normal with EF of 55-60% Grade 1 diastolic dysfunction Right atrial dilation Mild mitral regurgitation Gianfranco Choudhary MD (Electronically Signed) Final Date: 01 October 2024 20:23 S
[2024-10-01 11:28] LABS: Estmated Average Glucose 108; Hemoglobin A1C 5.4 % (4.0-6.0)
[2024-10-01 11:36] LABS: Procalcitonin 0.14 ng/mL (0-0.5)
[2024-10-01] MEDS: FUROsemide 10 mg/mL SDV 4mL 40 MG IVP (11:42)
[2024-10-01] MEDS: dexamethasone 10 mg/mL INJ IM (11:42)
[2024-10-01] MEDS: piperacillin-tazobactam 3.375 GM in sodium chloride 0.9% (plus) 50 ML IV (11:42)
[2024-10-01 11:47] LABS: Cholesterol 127 mg/dL (0-200); Ferritin 16 ng/mL (30-400); HDL Cholesterol 47 mg/dL (60-100); Iron 27 ug/dL (59-158); LDL Cholesterol Calculated 57 mg/dL (50-129); LDL HDL Ratio 1.21 RATIO (0.00-3.22); Triglycerides 114 mg/dL (0-150)
--- NOTE | 2024-10-01 12:26 | PC.NURSE ---
unable to give admission medications @1200 d/t being unverified by pharmacy
--- NOTE | 2024-10-01 12:39 | PC.NURSE ---
medications still unverified at this time; see last note
--- NOTE | 2024-10-01 12:49 | PM.HP ---
Providers/Chief Complaint Admitting Physician: Colton Burnett MD Primary Care Provider: Jhoana Farmer APRN Chief Complaint: sob History of Present Illness Justin Davis is a 74 year old male with a past medical history of COPD, CHF, history of right ICA stenosis status post right CEA and subsequent right ICA occlusion, right common carotid artery occlusion for which she is on Pradaxa, hypertension, hyperlipidemia who presents [facility] for shortness of breath. Patient reports shortness of breath for the last few days, does have a cough, no fevers, no chills does report edema, denies any lightheadedness, dizziness, no chest pain, no palpitations, he uses 2 L of oxygen at home currently up to 5 L, denies any hemoptysis, no bloody black stools reported Review of Systems Const: Denies: fever(s) Card: Denies: chest pain Resp: Reports: dyspnea and non-productive cough GI: Denies: abdominal pain Neuro: Denies: headache(s) Medications/Allergies Home Medications ?Medication ?Instructions ?Recorded ?Confirmed ?Last Taken ?Type aspirin 81 mg tablet,delayed 81 mg PO DAILY 08/14/22 10/01/24 10/01/24 History release cholecalciferol (vitamin D3) 25 25 mcg PO DAILY 08/14/22 10/01/24 10/01/24 History mcg (1,000 unit) capsule dabigatran etexilate 150 mg 150 mg PO BID 08/14/22 10/01/24 10/01/24 History capsule (Pradaxa) furosemide 20 mg tablet 20 mg PO DAILY 08/14/22 10/01/24 10/01/24 History guaifenesin 400 mg tablet 400 mg PO TID 08/14/22 10/01/24 10/01/24 History hydrocodone 7.5 mg-acetaminophen 1 tab PO Q6H PRN Pain 08/14/22 10/01/24 Unknown History 325 mg tablet lisinopril 20 mg tablet 20 mg PO DAILY 08/14/22 10/01/24 10/01/24 History metoprolol tartrate 50 mg tablet 50 mg PO BID 08/14/22 10/01/24 10/01/24 History mometasone 220 mcg/actuation(120 2 inh inhalation DAILY 08/14/22 10/01/24 09/30/24 History doses)breath activated powder inhaler (Asmanex Twisthaler) simvastatin 40 mg tablet 40 mg PO DAILY 08/14/22 10/01/24 09/30/24 History cyclobenzaprine 5 mg tablet 5 mg PO BEDTIME PRN muscle spasm 03/19/24 10/01/24 Unknown Rx #10 tabs albuterol sulfate 90 mcg/actuation 2 puff inhalation Q6H PRN 10/01/24 10/01/24 Unknown History aerosol inhaler Shortness Of Breath Allergies Allergy/AdvReac Type Severity Reaction Status Date / Time No Known Allergies Allergy Verified 03/19/24 10:45 PFSH Acute PFSH: Medical History 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 Carotid stenosis, bilateral Family History Father CAD (coronary artery disease) Hypertension Mother Cancer Diabetes Hypertension Brother Cancer Diabetes Hypertension Social History Smoking and tobacco/nicotine status: former use of tobacco/nicotine Quit status (tobacco/nicotine): has quit using Year quit tobacco: 2009 Former quit date comment: 2 PACK PER DAY X 40 YEARS Alcohol intake: current Alcohol intake frequency: 3 or more drinks per day Substance/Drug Use: never Household members: spouse Marital status: Number of children: 2 service: Yes Pets and animals: Yes Pets & animals: cat(s) and dog(s) Vitals/I&O/Wt Last Vital Signs Temp 98.3 F 10/01/24 08:40 Pulse 66 10/01/24 11:43 Resp 27 H 10/01/24 11:43 BP 154/78 10/01/24 11:43 Pulse Ox 97 10/01/24 11:43 O2 Del Method Nasal Cannula 10/01/24 11:43 O2 Flow Rate 5 10/01/24 11:43 Weight last 48 hrs Weight 115.666 kg Physical Exam Const: COMMON NORMALS: no acute distress and patient oriented x3 HENMT: COMMON NORMALS: normocephalic HEAD & SCALP: normocephalic Eye: COMMON NORMALS: Equal, round and reactive pupils present Neck/C-Spine: COMMON NORMALS: no JVD Resp: COMMON NORMALS: normal respiratory effort, No retractions and No use of accessory muscles AUSCULTATION: crackles and wheezes Cardio: COMMON NORMALS: regular rate, regular rhythm, S1 normal heart sound present and S2 normal heart sound present RATE: regular rate RHYTHM: regular rhythm HEART SOUNDS: S1 normal heart sound present and S2 normal heart sound present GI: COMMON NORMALS: Normal to inspection, nondistended, normoactive bowel sounds present, Soft to palpation and non-tender Extremity: COMMON NORMALS: no calf tenderness and no pedal edema Neuro: COMMON NORMALS: patient oriented x3, CN's II-XII intact bilaterally and moves all extremities Psych: COMMON NORMALS: mental status grossly normal Data 10/01/24 08:50 10/01/24 08:50 Micro: Microbiology 10/01/24 11:23 Blood Culture - Preliminary Blood SPECIMEN COLLECTED 10/01/24 11:20 Blood Culture - Preliminary Blood SPECIMEN COLLECTED A&P Assessment and plan (1) Carotid stenosis, bilateral: (2) Left-sided extracranial carotid artery stenosis: (3) Morbid obesity: (4) Acute exacerbation of chronic obstructive airways disease: (5) Pneumonia: (6) CHF exacerbation: (7) Acute anemia: (8) Acute hypoxic respiratory failure: Plan Acute hypoxic respiratory failure -Multifactorial -COPD exacerbation -Pneumonia -Fluid overload, CHF exacerbation -Plan -Lasix 40 mg IV -Solu-Medrol 40 mg IV every 12 hours -Rocephin -Azithromycin -Sputum culture -Blood culture -DuoNeb -Budesonide -Monitor respiratory status closely Acute anemia -On Pradaxa -No reported bloody black stools no hemodynamic, minus -Iron studies suggest iron deficiency anemia -Will check Hemoccult stool -For now monitor hemoglobin closely -Will consider therapeutic Lovenox based on clinical progress -Hold off on Pradaxa Carotid artery stenosis bilateral -Is on Pradaxa, on hold as above -On aspirin Full code # SCDs for DVT prophylaxis PDMP PDMP Reviewed: Not Reviewed Attestations Medical Necessity Statement*: Patient requires hospitalization for acute hypoxic respiratory failure secondary to CHF, pneumonia, COPD, with acute anemia, inpatient, greater than 2 midnights Diagnoses Carotid stenosis, bilateral I65.23 Left-sided extracranial carotid artery stenosis I65.22 Morbid obesity E66.01 Acute exacerbation of chronic obstructive airways disease J44.1 Pneumonia J18.9 CHF exacerbation I50.9 Acute anemia D64.9 Acute hypoxic respiratory failure J96.01
--- NOTE | 2024-10-01 13:29 | PC.NURSE ---
called pharmacy regarding protonix and carafate ordered @1200; pharmacy states looks like he's waiting for a room ; nurse explained ER hold, pharmacy to verify medications.
[2024-10-01] MEDS: pantoprazole 40 mg SDV IVP (13:55)
[2024-10-01] MEDS: sucralfate 1 gm/10 mL Oral Liq UDC PO (13:56)
[2024-10-01 15:07] LABS: Troponin 5 6HR 30.17 ng/L (0-15); Troponin 5 6HR Delta -1.83 ng/L (0-12)
--- NOTE | 2024-10-01 15:14 | PC.NURSE ---
pt urinary output approx 2L
--- NOTE | 2024-10-01 15:19 | ECG_ITS ---
[facility] Date: [facility]01 Pat Name: Justin Davis Department: Room: EDIP Gender: Male Barn Hand: : 1950 Requested By: Massimo Patino Order Number: [id number] Duc MD: Gianfranco Choudhary M.D. Measurements Intervals [place] Rate: 75 P: 17 [place]: 194 QRS: 157 QRSD: 152 T: 28 QT: 435 QTc: 488 Interpretive Statements SINUS RHYTHM WITH OCCASIONAL SUPRAVENTRICULAR PREMATURE COMPLEXES RIGHT BUNDLE BRANCH BLOCK [120+ ms QRS DURATION, UPRIGHT V1, 40+ ms S IN I/aVL/V4/V5/V6] LEFT POSTERIOR FASCICULAR BLOCK [QRS AXIS > 109, INFERIOR Q] Compared to ECG 10/01/2024 10:28:11 No significant changes Electronically Signed On 10-01-2024 19:26:13 REGISTERED PUBLIC HEALTH NURSE by Gianfranco Choudhary M.D. [email or web address]
--- NOTE | 2024-10-01 15:36 | PC.NURSE ---
1000mL urinary output @1530; updated pt on hold status, pt and family deny any further questions/concerns at this time.
[2024-10-01 16:14] LABS: Basophils % 0.1 %; Eosinophils % 0.1 %; Hematocrit 33.6 % (37-53); Lymphocytes # 0.7 10^3/uL (0.8-4.8); Lymphocytes % 6.9 %; Mean Corpuscular Hemoglobin 24.1 pg (27-33); Mean Corpuscular Volume 86.2 fl (82-101); Mean Platelet Volume 12.4 fL (7.4-10.4); Monocytes # 0.2 10^3/uL (0.2-0.9); Monocytes % 2.5 %; Neutrophils # 8.51 10^3/uL (1.8-7.7); Neutrophils % 90.1 %; Nucleated Red Blood Cells % 0 %; Platelet Count 247 10^3/cmm (157-399); Red Cell Distribution Width 17.2 % (12.1-15.1); White Blood Count 9.45 10^3/uL (3.29-11.43)
[2024-10-01] MEDS: metoprolol tartrate 50 mg Tablet PO (18:07)
--- NOTE | 2024-10-01 18:08 | PC.NURSE ---
provided pt with dinner try and ice water. provided guest with sandwich, diet jackelyn austin, pudddavis, apple sauce. pt and family deny any further needs at this time.
[2024-10-01] MEDS: budesonide 0.5 mg/2 mL Neb INHALATION (20:40)
[2024-10-01] MEDS: duloxetine 60 mg Capsule PO (21:44)
[2024-10-01] MEDS: cefTRIAXone 2,000 mg SDV 1000 MG IVP (22:28)
[2024-10-01] MEDS: AZITHROMYCIN ADD-Vantage 500 MG in 0.9% NaCl ADD-Vantage 250 ML 250 MG IV (22:28)
[2024-10-02] VITALS (11 sets, daily range): BP systolic 142–171; BP diastolic 50–94; PULSE 68–104; RESP 16–20; TEMP 36.4–36.8; O2SAT 90–96
[2024-10-02] MEDS: pantoprazole 40 mg SDV IVP ×2 (00:36→14:26)
[2024-10-02] MEDS: sucralfate 1 gm/10 mL Oral Liq UDC PO ×2 (00:36→14:25)
[2024-10-02] MEDS: HYDROcodone-acetaminophen 7.5-325 mg Tablet 1 TAB PO ×3 (03:00→21:47)
[2024-10-02] MEDS: hyDRALAzine 20 mg/mL INJ 1 mL 5 MG IVP (03:01)
[2024-10-02 04:23] LABS: Hematocrit 30.8 % (37-53); Lymphocytes # 0.5 10^3/uL (0.8-4.8); Lymphocytes % 7.6 %; Mean Corpuscular HGB Conc 26.9 g/dL (30-55); Mean Corpuscular Hemoglobin 23.6 pg (27-33); Mean Corpuscular Volume 87.7 fl (82-101); Mean Platelet Volume 12.4 fL (7.4-10.4); Monocytes # 0.5 10^3/uL (0.2-0.9); Monocytes % 7.6 %; Neutrophils # 5.89 10^3/uL (1.8-7.7); Neutrophils % 84.2 %; Nucleated Red Blood Cells % 0 %; Platelet Count 240 10^3/cmm (157-399); Red Blood Count 3.51 10^6/uL (3.85-5.65); Red Cell Distribution Width 17.2 % (12.1-15.1); White Blood Count 6.99 10^3/uL (3.29-11.43)
[2024-10-02 04:53] LABS: Alanine Aminotransferase 9 U/L (0-41); Albumin Level 3.5 g/dL (3.5-5.2); Alkaline Phosphatase 61 U/L (40-130); Aspartate Amino Transferase 19 U/L (0-40); Blood Urea Nitrogen 20 mg/dL (8-23); Carbon Dioxide 29 mmol/L (22-29); Chloride 100 mmol/L (98-107); Creatinine Clr Calc Pharmacy 72.8831; Glucose 153 mg/dL (65-115); Magnesium 1.7 mg/dL (1.7-2.3); NT Pro B Type Natriuretic Pept 3739 pg/mL (0-450); Osmolality Calculated 296 mOsm/kg (285-295); Phosphorus 2.7 mg/dL (2.5-4.5); Sodium 140 mmol/L (136-145); Total Bilirubin 0.3 mg/dL (0.15-1.2); Total Protein 6.5 g/dL (6.6-8.7)
[2024-10-02] MEDS: budesonide 0.5 mg/2 mL Neb INHALATION ×2 (07:39→20:43)
[2024-10-02] MEDS: ipratropium-albuterol 3 mL Neb INHALATION ×4 (07:39→20:42)
[2024-10-02] MEDS: methylPREDNISolone sod succ 40 mg/mL INJ IVP ×2 (08:39→20:16)
[2024-10-02] MEDS: lisinopril 20 mg Tablet PO (08:40)
[2024-10-02] MEDS: atorvastatin 40 mg Tablet 20 MG PO (08:40)
[2024-10-02] MEDS: cholecalciferol (vitamin D3) 1,000 unit Tablet 1000 UNIT PO (08:40)
[2024-10-02] MEDS: aspirin 81 mg EC Tablet PO (08:40)
[2024-10-02] MEDS: metoprolol tartrate 50 mg Tablet PO ×2 (08:40→16:51)
[2024-10-02] MEDS: potassium chloride ER 20 mEq Tablet PO (09:29)
[2024-10-02] MEDS: FUROsemide 10 mg/mL SDV 4mL 40 MG IVP (09:30)
--- NOTE | 2024-10-02 13:14 | CTR_ITS ---
PROCEDURE INFORMATION: Exam: CTA Chest With Contrast Exam date and time: 10/02/2024 1:05 PM Age: 74 years old Clinical indication: Shortness of breath; Additional info: SOB TECHNIQUE: Imaging protocol: Computed tomographic angiography of the chest with contrast. Exam focused on the arteries. 3D rendering (Not supervised by radiologist): MIP and/or 3D reconstructed images were created by the technologist. Radiation optimization: All CT scans at this facility use at least one of these dose optimization techniques: automated exposure control; mA and/or kV adjustment per patient size (includes targeted exams where dose is matched to clinical indication); or iterative reconstruction. Contrast material: OMNI 350; Contrast volume: 83 ml; Contrast route: INTRAVENOUS (IV); COMPARISON: [place] [id number] 03/19/2024 11:55 AM RADIATION DOSE METRICS: Total DLP (mGy-cm): 513.76 FINDINGS: Pulmonary arteries: Normal. No pulmonary emboli. Aorta: Unremarkable. No aortic aneurysm. No aortic dissection. Other arteries: Calcified atheromas of the visualized arteries. Lungs: Bilateral lower lobe atelectasis. There is no evidence of focal pulmonary consolidation. Pleural spaces: There are small bilateral pleural effusions. Heart: Unremarkable. No cardiomegaly. No pericardial effusion. Coronary arteries: There is moderate atherosclerotic calcification of the coronary arteries. Lymph nodes: Unremarkable. No enlarged lymph nodes. Bones/joints: Mild curvature of the thoracic spine convex to the rightThe thoracic spine demonstrates mild degenerative changes at multiple levels. Soft tissues: Unremarkable. CT/CT angio chest PE protcl [id number] IMPRESSION: 1. Small bilateral pleural effusions with bilateral lower lobe atelectasis. 2. No acute infiltrates.
[2024-10-02 13:53] LABS: Hematocrit 31.7 % (37-53)
[2024-10-02] MEDS: iohexol 350 mg/mL 500 mL Btl (per mL) IV (14:14)
--- NOTE | 2024-10-02 14:15 | P.PN_ITS ---
Subjective 2 Subjective: Patient was seen this morning, he continues to complain of shortness of breath, with minimal exertion, no fevers, chills, nausea, vomiting, denies any blood or black stools, I was able to speak to patient's while patient was in the room so he can listen to him, patient denies any history of anemia, no history of EGD colonoscopy, discussed his anemia I discussed risk and benefits of holding anticoagulation, he voiced understanding of all questions answered, agreed to proceed, discussed my concerns for the possibility of him needing EGD until his respiratory status improves Vitals/I&O/Wt Last Vital Signs Temp 97.5 F L 10/02/24 11:08 Pulse 86 10/02/24 11:27 Resp 20 H 10/02/24 11:27 BP 152/79 10/02/24 11:08 Pulse Ox 94 10/02/24 11:27 O2 Del Method Nasal Cannula 10/02/24 11:27 O2 Flow Rate 6 10/02/24 11:27 10/01/24 10/02/24 10/02/24 22:59 07:59 14:59 Intake Total 250 / 300 960 / 960 Balance 250 / 300 960 / 960 Weight last 48 hrs Weight 112.854 kg Weight 113.03 kg Weight 115.666 kg Physical Exam 2 Const: COMMON NORMALS: no acute distress and patient oriented x3 Resp: COMMON NORMALS: normal respiratory effort, No retractions and No use of accessory muscles AUSCULTATION: crackles and wheezes Cardio: COMMON NORMALS: regular rate, regular rhythm, S1 normal heart sound present and S2 normal heart sound present RATE: regular rate RHYTHM: r egular rhythm HEART SOUNDS: S1 normal heart sound present and S2 normal heart sound present GI: COMMON NORMALS: Normal to inspection, nondistended, normoactive bowel sounds present and non-tender Extremity: COMMON NORMALS: no pedal edema Neuro: COMMON NORMALS: patient oriented x3 Psych: COMMON NORMALS: mental status grossly normal Data 10/02/24 13:48 10/02/24 01:22 Micro: Microbiology 10/01/24 11:23 Blood Culture - Preliminary Blood NEGATIVE TO DATE 10/01/24 11:20 Blood Culture - Preliminary Blood NEGATIVE TO DATE A&P Assessment and plan (1) Carotid stenosis, bilateral: (2) Left-sided extracranial carotid artery stenosis: (3) Morbid obesity: (4) Acute exacerbation of chronic obstructive airways disease: (5) Pneumonia: (6) CHF exacerbation: (7) Acute anemia: (8) Acute hypoxic respiratory failure: Plan Acute hypoxic respiratory failure -Multifactorial -COPD exacerbation -Pneumonia -Fluid overload, CHF exacerbation -Plan -Lasix 40 mg IV -Solu-Medrol 40 mg IV every 12 hours -Rocephin -Azithromycin -Sputum culture -Blood culture -DuoNeb -Budesonide -Monitor respiratory status closely A CT chest Acute anemia -On Pradaxa -No reported bloody black stools no hemodynamic, minus -Iron studies suggest iron deficiency anemia -Will check Hemoccult stool -For now monitor hemoglobin closely -hemoglobin continues to drop to 8.3, will consider EGD once respiratory status improves -Hold off on Pradaxa Carotid artery stenosis bilateral -Is on Pradaxa, on hold as above -On aspirin Full code # SCDs for DVT prophylaxis PDMP PDMP Reviewed: Not Reviewed Attestations 2 Medical Necessity Statement*: Patient requires hospitalization for acute hypoxic respiratory failure secondary COPD, pneumonia, fluid overload Diagnoses Carotid stenosis, bilateral I65.23 Left-sided extracranial carotid artery stenosis I65.22 Morbid obesity E66.01 Acute exacerbation of chronic obstructive airways disease J44.1 Pneumonia J18.9 CHF exacerbation I50.9 Acute anemia D64.9 Acute hypoxic respiratory failure J96.01
[2024-10-02] MEDS: duloxetine 60 mg Capsule PO (20:16)
[2024-10-02] MEDS: cefTRIAXone 2,000 mg SDV 1000 MG IVP (23:39)
[2024-10-02] MEDS: AZITHROMYCIN ADD-Vantage 500 MG in 0.9% NaCl ADD-Vantage 250 ML 250 MG IV (23:39)
[2024-10-03] VITALS (9 sets, daily range): BP systolic 148–167; BP diastolic 52–86; PULSE 75–97; RESP 18–20; TEMP 36.4–36.9; O2SAT 90–96
[2024-10-03] MEDS: sucralfate 1 gm/10 mL Oral Liq UDC PO ×2 (00:46→13:16)
[2024-10-03] MEDS: pantoprazole 40 mg SDV IVP ×2 (00:46→13:16)
[2024-10-03 03:03] LABS: Hematocrit 32.1 % (37-53); Lymphocytes # 0.5 10^3/uL (0.8-4.8); Lymphocytes % 5.4 %; Mean Corpuscular HGB Conc 26.8 g/dL (30-55); Mean Corpuscular Hemoglobin 23.8 pg (27-33); Mean Corpuscular Volume 88.7 fl (82-101); Mean Platelet Volume 12.1 fL (7.4-10.4); Monocytes # 0.4 10^3/uL (0.2-0.9); Monocytes % 3.9 %; Neutrophils % 90.3 %; Nucleated Red Blood Cells % 0 %; Platelet Count 191 10^3/cmm (157-399); Red Blood Count 3.62 10^6/uL (3.85-5.65); Red Cell Distribution Width 17.1 % (12.1-15.1); White Blood Count 9.75 10^3/uL (3.29-11.43)
[2024-10-03 03:27] LABS: Alanine Aminotransferase 14 U/L (0-41); Albumin Level 3.5 g/dL (3.5-5.2); Alkaline Phosphatase 55 U/L (40-130); Blood Urea Nitrogen 21 mg/dL (8-23); Calcium 8.9 mg/dL (8.5-10.5); Carbon Dioxide 28 mmol/L (22-29); Chloride 99 mmol/L (98-107); Creatinine Clr Calc Pharmacy 66.1995; Glucose 213 mg/dL (65-115); Magnesium 1.8 mg/dL (1.7-2.3); NT Pro B Type Natriuretic Pept 4503 pg/mL (0-450); Osmolality Calculated 295 mOsm/kg (285-295); Sodium 138 mmol/L (136-145); Total Bilirubin 0.2 mg/dL (0.15-1.2); Total Protein 6.5 g/dL (6.6-8.7)
[2024-10-03 03:29] LABS: Anion Gap 15.8 (5-19); Aspartate Amino Transferase 26 U/L (0-40); Potassium 4.8 mmol/L (3.5-5.1)
[2024-10-03] MEDS: ipratropium-albuterol 3 mL Neb INHALATION ×4 (08:05→20:07)
[2024-10-03] MEDS: budesonide 0.5 mg/2 mL Neb INHALATION ×2 (08:05→20:07)
[2024-10-03] MEDS: aspirin 81 mg EC Tablet PO (08:42)
[2024-10-03] MEDS: cholecalciferol (vitamin D3) 1,000 unit Tablet 1000 UNIT PO (08:42)
[2024-10-03] MEDS: metoprolol tartrate 50 mg Tablet PO ×2 (08:42→16:48)
[2024-10-03] MEDS: atorvastatin 40 mg Tablet 20 MG PO (08:43)
[2024-10-03] MEDS: amlodipine 10 mg Tablet PO (08:43)
[2024-10-03] MEDS: methylPREDNISolone sod succ 40 mg/mL INJ IVP ×2 (08:43→21:02)
[2024-10-03] MEDS: FUROsemide 10 mg/mL SDV 4mL 40 MG IVP ×2 (08:43→16:48)
[2024-10-03] MEDS: lisinopril 20 mg Tablet PO (08:43)
--- NOTE | 2024-10-03 10:07 | PC.SOCIAL ---
IMM Update pg 2 of IMM Updated and reviewed w/ patient. Copy provided and copy dated, initialed and placed in chart.
--- NOTE | 2024-10-03 11:40 | PC.SLP ---
Patient trailed water without difficulty (no overt s/s of aspiration). Patient reported no issues with current diet.
--- NOTE | 2024-10-03 12:40 | P.PN_ITS ---
Subjective 2 Subjective: Patient was seen this morning, he is alert and oriented x 3, following all commands, is at bedside he tells me he did not get much sleep overnight, he was interrupted multiple times during the night, does continue to clean shortness of breath he tells me when he exerts himself his O2 sats dropped to the 70s heart rates going to the 120s, continues to feel short of breath with exertion, denies any blood black stools Vitals/I&O/Wt Last Vital Signs Temp 97.7 F 10/03/24 11:10 Pulse 87 10/03/24 11:43 Resp 20 H 10/03/24 11:43 BP 163/70 10/03/24 11:10 Pulse Ox 95 10/03/24 11:43 O2 Del Method Nasal Cannula 10/03/24 11:43 O2 Flow Rate 5 10/03/24 11:43 10/02/24 10/03/24 10/03/24 22:59 06:59 14:59 Intake Total 480 / 1440 250 / 1690 360 / 360 Balance 480 / 1440 250 / 1690 360 / 360 Weight last 48 hrs Weight 114.487 kg Weight 112.854 kg Weight 113.03 kg Physical Exam 2 Const: COMMON NORMALS: no acute distress and patient oriented x3 Resp: COMMON NORMALS: normal respiratory effort, No retractions and No use of accessory muscles AUSCULTATION: crackles and wheezes Cardio: COMMON NORMALS: regular rate, regular rhythm, S1 normal heart sound present and S2 normal heart sound present RATE: regular rate RHYTHM: r egular rhythm HEART SOUNDS: S1 normal heart sound present and S2 normal heart sound present GI: COMMON NORMALS: Normal to inspection, nondistended, normoactive bowel sounds present and non-tender Extremity: NARRATIVE EXTREMITY EXAM: 1+ edema Neuro: COMMON NORMALS: patient oriented x3 Psych: COMMON NORMALS: mental status grossly normal Data 10/03/24 01:54 10/03/24 01:54 Micro: Microbiology 10/01/24 11:23 Blood Culture - Preliminary Blood NEGATIVE TO DATE 10/01/24 11:20 Blood Culture - Preliminary Blood NEGATIVE TO DATE A&P Assessment and plan (1) Carotid stenosis, bilateral: (2) Left-sided extracranial carotid artery stenosis: (3) Morbid obesity: (4) Acute exacerbation of chronic obstructive airways disease: (5) Pneumonia: (6) CHF exacerbation: (7) Acute anemia: (8) Acute hypoxic respiratory failure: Plan Acute hypoxic respiratory failure -Multifactorial -COPD exacerbation -Pneumonia -Fluid overload, CHF exacerbation CT angiogram CT/CT angio chest PE protcl [id number] IMPRESSION: 1. Small bilateral pleural effusions with bilateral lower lobe atelectasis. 2. No acute infiltrates. -Plan -Lasix 40 mg IV twice daily -Solu-Medrol 40 mg IV every 12 hours -Rocephin -Azithromycin -Sputum culture -Blood culture -DuoNeb -Budesonide -Monitor respiratory status closely Acute anemia -On Pradaxa -No reported bloody black stools no hemodynamic, minus -Iron studies suggest iron deficiency anemia -Will check Hemoccult stool -For now monitor hemoglobin closely -hemoglobin continues to drop to 8.3, will consider EGD once respiratory status improves -Hold off on Pradaxa Carotid artery stenosis bilateral -Is on Pradaxa, on hold as above -On aspirin Full code # SCDs for DVT prophylaxis For today Lasix 40 IV twice daily, upgrade diet, patient will get his dentures, Solu-Medrol, IV antibiotics, continue to monitor respiratory status closely PDMP PDMP Reviewed: Not Reviewed Attestations 2 Medical Necessity Statement*: Patient requires hospitalization for acute hypoxic respiratory failure secondary to COPD, pneumonia, fluid overload, acute anemia Diagnoses Carotid stenosis, bilateral I65.23 Left-sided extracranial carotid artery stenosis I65.22 Morbid obesity E66.01 Acute exacerbation of chronic obstructive airways disease J44.1 Pneumonia J18.9 CHF exacerbation I50.9 Acute anemia D64.9 Acute hypoxic respiratory failure J96.01
[2024-10-03] MEDS: duloxetine 60 mg Capsule PO (21:02)
[2024-10-03] MEDS: cefTRIAXone 2,000 mg SDV 1000 MG IVP (22:13)
[2024-10-03] MEDS: AZITHROMYCIN ADD-Vantage 500 MG in 0.9% NaCl ADD-Vantage 250 ML 250 MG IV (22:14)
[2024-10-03] MEDS: HYDROcodone-acetaminophen 7.5-325 mg Tablet 1 TAB PO (23:33)
[2024-10-04] VITALS (13 sets, daily range): BP systolic 138–178; BP diastolic 70–83; PULSE 71–90; RESP 16–20; TEMP 36.4–37; O2SAT 92–99; BMI 43.2
[2024-10-04 05:29] LABS: Hematocrit 33.7 % (37-53); Lymphocytes # 0.6 10^3/uL (0.8-4.8); Lymphocytes % 5.5 %; Mean Corpuscular Hemoglobin 23.4 pg (27-33); Mean Corpuscular Volume 86.6 fl (82-101); Mean Platelet Volume 11.3 fL (7.4-10.4); Monocytes # 0.5 10^3/uL (0.2-0.9); Monocytes % 4.4 %; Neutrophils # 9.75 10^3/uL (1.8-7.7); Neutrophils % 89.8 %; Nucleated Red Blood Cells % 0 %; Platelet Count 305 10^3/cmm (157-399); Red Blood Count 3.89 10^6/uL (3.85-5.65); White Blood Count 10.86 10^3/uL (3.29-11.43)
[2024-10-04 05:57] LABS: Alanine Aminotransferase 37 U/L (0-41); Albumin Level 3.5 g/dL (3.5-5.2); Alkaline Phosphatase 54 U/L (40-130); Anion Gap 14.5 (5-19); Aspartate Amino Transferase 27 U/L (0-40); Blood Urea Nitrogen 24 mg/dL (8-23); Calcium 8.9 mg/dL (8.5-10.5); Carbon Dioxide 32 mmol/L (22-29); Chloride 100 mmol/L (98-107); Creatinine Clr Calc Pharmacy 81.5658; Glucose 154 mg/dL (65-115); Magnesium 1.9 mg/dL (1.7-2.3); Osmolality Calculated 301 mOsm/kg (285-295); Phosphorus 3.4 mg/dL (2.5-4.5); Potassium 4.5 mmol/L (3.5-5.1); Sodium 142 mmol/L (136-145); Total Bilirubin 0.3 mg/dL (0.15-1.2); Total Protein 6.5 g/dL (6.6-8.7)
[2024-10-04 06:16] LABS: NT Pro B Type Natriuretic Pept 4801 pg/mL (0-450)
[2024-10-04] MEDS: ipratropium-albuterol 3 mL Neb INHALATION ×4 (08:04→21:10)
[2024-10-04] MEDS: budesonide 0.5 mg/2 mL Neb INHALATION ×2 (08:04→21:10)
[2024-10-04] MEDS: methylPREDNISolone sod succ 40 mg/mL INJ IVP ×3 (08:10→20:56)
[2024-10-04] MEDS: sucralfate 1 gm/10 mL Oral Liq UDC PO ×2 (08:10→20:55)
[2024-10-04] MEDS: pantoprazole 40 mg SDV IVP ×2 (08:10→20:55)
[2024-10-04] MEDS: cholecalciferol (vitamin D3) 1,000 unit Tablet 1000 UNIT PO (08:11)
[2024-10-04] MEDS: amlodipine 10 mg Tablet PO (08:11)
[2024-10-04] MEDS: lisinopril 20 mg Tablet PO (08:11)
[2024-10-04] MEDS: atorvastatin 40 mg Tablet 20 MG PO (08:11)
[2024-10-04] MEDS: aspirin 81 mg EC Tablet PO (08:11)
[2024-10-04] MEDS: metoprolol tartrate 50 mg Tablet PO ×2 (09:18→16:44)
--- NOTE | 2024-10-04 18:47 | P.PN_ITS ---
Subjective 2 Subjective: Dyspnea at rest gradually improving, but he still gets quite dyspneic with exertion, oxygen saturation dropping down to 68% when trying to ambulate a short distance to the bathroom. Vitals/I&O/Wt Last Vital Signs Temp 97.5 F L 10/04/24 16:00 Pulse 89 10/04/24 16:00 Resp 19 H 10/04/24 16:00 BP 154/77 10/04/24 16:00 Pulse Ox 95 10/04/24 16:00 O2 Del Method Nasal Cannula 10/04/24 16:00 O2 Flow Rate 4 10/04/24 15:13 10/04/24 10/04/24 10/04/24 06:59 14:59 22:59 Intake Total 250 / 1150 960 / 960 480 / 1440 Output Total 0 / 0 Balance 250 / 1150 960 / 960 480 / 1440 Weight last 48 hrs Weight 114.305 kg Weight 114.487 kg Physical Exam 2 Narrative: Accompanied by his Const: COMMON NORMALS: patient oriented x3 and alert GENERAL APPEARANCE: c ooperative ORIENTATION/CONSCIOUSNESS: Yes awake HENMT: COMMON NORMALS: oropharynx normal Neck/C-Spine: COMMON NORMALS: no JVD Resp: COMMON NORMALS: normal respiratory effort AUSCULTATION: diminished lung sounds Cardio: COMMON NORMALS: no JVD, regular rhythm, S1 normal heart sound present, S2 normal heart sound present and No murmurs present (Cardio) RHYTHM: regular rhythm HEART SOUNDS: S1 normal heart sound present and S2 normal heart sound present GI: COMMON NORMALS: Normal to inspection, nondistended, normoactive bowel sounds present, Soft to palpation and non-tender PALPATION: Yes Soft to palpation Extremity: COMMON NORMALS: no joint enlargement and no pedal edema Neuro: COMMON NORMALS: patient oriented x3 and moves all extremities S ENSORIUM/ORIENTATION: Yes alert Skin: COMMON NORMALS: no rashes or lesions noted GENERAL SKIN EXAM: no rashes or lesions noted Data 10/04/24 05:21 10/04/24 05:21 A&P Assessment and plan (1) Carotid stenosis, bilateral: (2) Left-sided extracranial carotid artery stenosis: (3) Morbid obesity: (4) Acute exacerbation of chronic obstructive airways disease: (5) Pneumonia: (6) CHF exacerbation: (7) Acute anemia: (8) Acute hypoxic respiratory failure: Plan Acute hypoxic respiratory failure Still becoming quite dyspneic and hypoxic on exertion. Reports with short distance ambulation to the bathroom his saturation dropped down to 68% on return. Diminished air entry on exam, although he is moving some air, without wheezing, other adventitious sounds currently. Continue treatment of severe exacerbation of COPD with hypoxic respiratory failure, continue IV steroid treatment with Solu-Medrol, increase to every 6 hours, 40 mg, monitor for risk of hyperglycemia, hypertension, encephalopathy, gastritis with IV steroid. Continue Saleh antibiotic coverage with ceftriaxone, azithromycin. Reviewed EKG, without QTc prolongation, consider reassessment with risk of QT provocation with macrolide. Discussed with respite therapy, nursing staff to make sure patient has long enough oxygen hose when he is walking to the bathroom. Seems it may be just at the limit of reaching the facilities. Continue breathing treatments, continue to de-escalate oxygen support as tolerating. If showing further improvement, consistently wearing oxygen, consider reassessment possible discharge tomorrow as discussed with patient and his who are in agreement. Reviewed BUN, creatinine, BUN noted with mild rise up to 24. Possibly secondary to corticosteroid. Monitor for risk of uremia. Creatinine noted normal. -COPD exacerbation -Pneumonia: As above. Acute anemia Reviewed vitals, hemoglobin, platelets. Platelets noted normal. Hemoglobin with mild improvement to 9.1. Reassess blood counts. -On Pradaxa -No reported bloody black stools no hemodynamic, minus -Iron studies suggest iron deficiency anemia -RequestedHemoccult stool, reviewed, not collected yet. -For now monitor hemoglobin closely -consider EGD once respiratory status improves -Hold off on Pradaxa Carotid artery stenosis bilateral -Is on Pradaxa, on hold as above -On aspirin Full code # SCDs for DVT prophylaxis For today Lasix 40 IV twice daily, upgrade diet, patient will get his dentures, Solu-Medrol, IV antibiotics, continue to monitor respiratory status closely PDMP PDMP Reviewed: Not Reviewed Attestations 2 Medical Necessity Statement*: Continue admission for assessment management of acute hypoxic respiratory failure, severe exacerbation of COPD, pneumonia, acute anemia. and High MDM includes amount and/or complexity of data reviewed/ordered [ resulted lab(s)/test(s), ordered lab(s)/test(s) and other healthcare professional discussion] and described risk of complication, morbidity or mortality of management as documented Diagnoses Carotid stenosis, bilateral I65.23 Left-sided extracranial carotid artery stenosis I65.22 Morbid obesity E66.01 Acute exacerbation of chronic obstructive airways disease J44.1 Pneumonia J18.9 CHF exacerbation I50.9 Acute anemia D64.9 Acute hypoxic respiratory failure J96.01
[2024-10-04] MEDS: duloxetine 60 mg Capsule PO (20:55)
[2024-10-04] MEDS: cefTRIAXone 2,000 mg SDV 1000 MG IVP (23:57)
[2024-10-04] MEDS: AZITHROMYCIN ADD-Vantage 500 MG in 0.9% NaCl ADD-Vantage 250 ML 250 MG IV (23:58)
[2024-10-05] VITALS (14 sets, daily range): BP systolic 152–192; BP diastolic 70–92; PULSE 67–91; RESP 16–20; TEMP 36.4–36.8; O2SAT 92–98; BMI 43.2
[2024-10-05] MEDS: HYDROcodone-acetaminophen 7.5-325 mg Tablet 1 TAB PO (01:44)
[2024-10-05] MEDS: methylPREDNISolone sod succ 40 mg/mL INJ IVP ×4 (03:02→21:31)
[2024-10-05 05:11] LABS: Hematocrit 32.3 % (37-53); Lymphocytes # 0.6 10^3/uL (0.8-4.8); Lymphocytes % 5.5 %; Mean Corpuscular HGB Conc 27.9 g/dL (30-55); Mean Corpuscular Hemoglobin 23.6 pg (27-33); Mean Corpuscular Volume 84.6 fl (82-101); Mean Platelet Volume 11.3 fL (7.4-10.4); Monocytes # 0.4 10^3/uL (0.2-0.9); Monocytes % 3.7 %; Neutrophils # 9.79 10^3/uL (1.8-7.7); Neutrophils % 90.3 %; Nucleated Red Blood Cells % 0 %; Platelet Count 316 10^3/cmm (157-399); Red Blood Count 3.82 10^6/uL (3.85-5.65); Red Cell Distribution Width 16.7 % (12.1-15.1); White Blood Count 10.84 10^3/uL (3.29-11.43)
[2024-10-05 05:32] LABS: Anion Gap 11.5 (5-19); Blood Urea Nitrogen 24 mg/dL (8-23); Calcium 8.7 mg/dL (8.5-10.5); Carbon Dioxide 32 mmol/L (22-29); Chloride 99 mmol/L (98-107); Creatinine Clr Calc Pharmacy 91.6793; Glucose 189 mg/dL (65-115); Osmolality Calculated 295 mOsm/kg (285-295); Potassium 4.5 mmol/L (3.5-5.1); Sodium 138 mmol/L (136-145)
[2024-10-05 05:37] LABS: NT Pro B Type Natriuretic Pept 4988 pg/mL (0-450)
[2024-10-05] MEDS: ipratropium-albuterol 3 mL Neb INHALATION ×4 (07:57→21:17)
[2024-10-05] MEDS: budesonide 0.5 mg/2 mL Neb INHALATION ×2 (07:57→21:18)
[2024-10-05] MEDS: atorvastatin 40 mg Tablet 20 MG PO (08:46)
[2024-10-05] MEDS: cholecalciferol (vitamin D3) 1,000 unit Tablet 1000 UNIT PO (08:46)
[2024-10-05] MEDS: aspirin 81 mg EC Tablet PO (08:46)
[2024-10-05] MEDS: amlodipine 10 mg Tablet PO (08:46)
[2024-10-05] MEDS: lisinopril 20 mg Tablet PO (08:46)
[2024-10-05] MEDS: metoprolol tartrate 50 mg Tablet PO ×2 (08:46→17:54)
[2024-10-05] MEDS: pantoprazole 40 mg SDV IVP ×2 (08:47→21:30)
[2024-10-05] MEDS: sucralfate 1 gm/10 mL Oral Liq UDC PO ×2 (08:47→21:30)
--- NOTE | 2024-10-05 10:22 | PC.SOCIAL ---
IMM Update pg 2 of IMM updated and reviewed w/ patient. Copy provided and copy dated, initialed and placed in chart.
--- NOTE | 2024-10-05 11:20 | PC.RESP ---
rt ambulated pt at this time. prior to ambulating, pt spo2 was 96% on 3L nc. pt ambulated approx 150ft. during ambulation, spo2 did start to decreased. by the end of ambulation, pt spo2 was 88% on 5L nc. during ambulation, rt stressed to pt to attempt to breathe in through nose to help increase o2. pt continued to mouth breathe. pt states he does not do a lot of ambulating at home and the approx 150ft was a lot more than he normally does. pt states he wears 5L on exertion at home
--- NOTE | 2024-10-05 14:01 | P.PN_ITS ---
Subjective 2 Subjective: Patient was seen this morning, he is sitting up to the side of the bed, is at bedside continues to complain of wheezing and shortness of breath, discussed continue IV diuresis, continue steroids, continue antibiotics, giving him time, he is in agreement, is also at bedside, had a detailed discussion with her Vitals/I&O/Wt Last Vital Signs Temp 97.6 F 10/05/24 11:50 Pulse 67 10/05/24 11:50 Resp 19 H 10/05/24 11:50 BP 168/92 10/05/24 11:50 Pulse Ox 94 10/05/24 11:50 O2 Del Method Nasal Cannula 10/05/24 11:50 O2 Flow Rate 3 10/05/24 11:18 10/04/24 10/05/24 10/05/24 22:59 06:59 14:59 Intake Total 1080 / 2040 450 / 2490 960 / 960 Balance 1080 / 2040 450 / 2490 960 / 960 Weight last 48 hrs Weight 114.305 kg Weight 114.305 kg Physical Exam 2 Const: COMMON NORMALS: no acute distress and patient oriented x3 Resp: COMMON NORMALS: normal respiratory effort, No retractions and No use of accessory muscles AUSCULTATION: wheezes Cardio: COMMON NORMALS: regular rate, regular rhythm, S1 normal heart sound present and S2 normal heart sound present RATE: regular rate RHYTHM: r egular rhythm HEART SOUNDS: S1 normal heart sound present and S2 normal heart sound present GI: COMMON NORMALS: Normal to inspection, nondistended, normoactive bowel sounds present, Soft to palpation and non-tender PALPATION: Yes Soft to palpation Extremity: COMMON NORMALS: no pedal edema Neuro: COMMON NORMALS: patient oriented x3 Psych: COMMON NORMALS: mental status grossly normal Data 10/05/24 04:58 10/05/24 04:58 A&P Assessment and plan (1) Carotid stenosis, bilateral: (2) Left-sided extracranial carotid artery stenosis: (3) Morbid obesity: (4) Acute exacerbation of chronic obstructive airways disease: (5) Pneumonia: (6) CHF exacerbation: (7) Acute anemia: (8) Acute hypoxic respiratory failure: Plan Acute hypoxic respiratory failure -Secondary to COPD, pneumonia -Lasix 40 mg IV -Solu-Medrol 40 mg IV push every 6 hours -Continue Rocephin, Zithromycin Acute anemia, concerns for slow GI bleed -On Pradaxa as outpatient currently on hold -No reported bloody black stools no hemodynamic, minus -Iron studies suggest iron deficiency anemia -For now monitor hemoglobin closely -consider EGD once respiratory status improves -Hold off on Pradaxa Carotid artery stenosis bilateral -Is on Pradaxa, on hold as above -On aspirin Full code # SCDs for DVT prophylaxis For today Lasix 40 IV, IV steroids, continue IV antibiotics, continue to ambulate PDMP PDMP Reviewed: Not Reviewed Attestations 2 Medical Necessity Statement*: Patient requires hospitalization for acute hypoxic respiratory failure, acute anemia Diagnoses Carotid stenosis, bilateral I65.23 Left-sided extracranial carotid artery stenosis I65.22 Morbid obesity E66.01 Acute exacerbation of chronic obstructive airways disease J44.1 Pneumonia J18.9 CHF exacerbation I50.9 Acute anemia D64.9 Acute hypoxic respiratory failure J96.01
[2024-10-05] MEDS: potassium chloride ER 20 mEq Tablet 40 MEQ PO (14:30)
[2024-10-05] MEDS: metOLazone 5 MG Tablet PO (14:30)
[2024-10-05] MEDS: FUROsemide 10 mg/mL SDV 4mL 40 MG IVP (14:31)
[2024-10-05] MEDS: guaiFENesin 600 mg Tablet PO (17:54)
[2024-10-05] MEDS: benzonatate 100 mg Capsule 200 MG PO (17:54)
[2024-10-05] MEDS: azithromycin 250 mg Tablet PO (21:31)
[2024-10-05] MEDS: duloxetine 60 mg Capsule PO (21:31)
[2024-10-05] MEDS: cefTRIAXone 2,000 mg SDV 1000 MG IVP (23:24)
[2024-10-06] VITALS (11 sets, daily range): BP systolic 155–187; BP diastolic 71–87; PULSE 64–98; RESP 16–20; TEMP 36.6–36.8; O2SAT 93–97
[2024-10-06 05:47] LABS: Basophils % 0.1 %; Hematocrit 34.2 % (37-53); Lymphocytes # 0.8 10^3/uL (0.8-4.8); Lymphocytes % 5.9 %; Mean Corpuscular HGB Conc 28.4 g/dL (30-55); Mean Platelet Volume 11.3 fL (7.4-10.4); Monocytes # 0.7 10^3/uL (0.2-0.9); Monocytes % 5.2 %; Neutrophils # 11.39 10^3/uL (1.8-7.7); Neutrophils % 88.3 %; Nucleated Red Blood Cells % 0 %; Platelet Count 355 10^3/cmm (157-399); Red Blood Count 4.22 10^6/uL (3.85-5.65); Red Cell Distribution Width 16.4 % (12.1-15.1)
[2024-10-06 05:57] LABS: Anion Gap 12.5 (5-19); Blood Urea Nitrogen 29 mg/dL (8-23); Calcium 9.2 mg/dL (8.5-10.5); Carbon Dioxide 30 mmol/L (22-29); Chloride 90 mmol/L (98-107); Creatinine Clr Calc Pharmacy 81.4927; Glucose 254 mg/dL (65-115); NT Pro B Type Natriuretic Pept 4547 pg/mL (0-450); Osmolality Calculated 280 mOsm/kg (285-295); Potassium 4.5 mmol/L (3.5-5.1); Sodium 128 mmol/L (136-145)
[2024-10-06] MEDS: methylPREDNISolone sod succ 40 mg/mL INJ IVP (06:00)
[2024-10-06] MEDS: aspirin 81 mg EC Tablet PO (07:34)
[2024-10-06] MEDS: guaiFENesin 600 mg Tablet PO ×2 (07:34→18:29)
[2024-10-06] MEDS: cholecalciferol (vitamin D3) 1,000 unit Tablet 1000 UNIT PO (07:34)
[2024-10-06] MEDS: amlodipine 10 mg Tablet PO (07:34)
[2024-10-06] MEDS: benzonatate 100 mg Capsule 200 MG PO (07:34)
[2024-10-06] MEDS: lisinopril 20 mg Tablet PO ×2 (07:34→18:29)
[2024-10-06] MEDS: sucralfate 1 gm/10 mL Oral Liq UDC PO ×2 (07:35→21:03)
[2024-10-06] MEDS: metoprolol tartrate 50 mg Tablet PO ×2 (07:35→18:29)
[2024-10-06] MEDS: atorvastatin 40 mg Tablet 20 MG PO (07:35)
[2024-10-06] MEDS: pantoprazole 40 mg SDV IVP ×2 (07:35→21:03)
[2024-10-06] MEDS: budesonide 0.5 mg/2 mL Neb INHALATION ×2 (08:48→20:38)
[2024-10-06] MEDS: ipratropium-albuterol 3 mL Neb INHALATION ×4 (08:48→20:38)
[2024-10-06 12:02] LABS: Glucose Point of Care 312 mg/dL (70-110)
[2024-10-06] MEDS: spironolactone 25 mg Tablet 12.5 MG PO (12:03)
[2024-10-06] MEDS: insulin lispro 100 unit/1 mL SUBCUT ×2 (12:03→18:29)
--- NOTE | 2024-10-06 12:50 | P.PN_ITS ---
Subjective 2 Subjective: Patient was seen this morning, he is alert awake, following all commands, continues to have complaints of shortness of breath, we discussed his elevated blood sugars, discussed ambulation Vitals/I&O/Wt Last Vital Signs Temp 98.0 F 10/06/24 12:00 Pulse 78 10/06/24 12:00 Resp 20 H 10/06/24 12:00 BP 170/71 10/06/24 12:00 Pulse Ox 93 10/06/24 12:00 O2 Del Method Nasal Cannula 10/06/24 12:00 O2 Flow Rate 3 10/06/24 11:09 10/05/24 10/06/24 10/06/24 22:59 06:59 14:59 Intake Total 480 / 1440 480 / 480 Balance 480 / 1440 480 / 480 Weight last 48 hrs Weight 114.107 kg Weight 114.305 kg Physical Exam 2 Const: COMMON NORMALS: no acute distress and patient oriented x3 Resp: COMMON NORMALS: normal respiratory effort, No retractions and No use of accessory muscles AUSCULTATION: crackles and wheezes Cardio: COMMON NORMALS: regular rate, regular rhythm, S1 normal heart sound present and S2 normal heart sound present RATE: regular rate RHYTHM: r egular rhythm HEART SOUNDS: S1 normal heart sound present and S2 normal heart sound present GI: COMMON NORMALS: Normal to inspection, nondistended, normoactive bowel sounds present and non-tender Extremity: COMMON NORMALS: no pedal edema Neuro: COMMON NORMALS: patient oriented x3 Psych: COMMON NORMALS: mental status grossly normal Data 10/06/24 05:01 10/06/24 05:01 Micro: Microbiology 10/01/24 11:23 Blood Culture - Final Blood NO GROWTH AFTER 5 DAYS 10/01/24 11:20 Blood Culture - Final Blood NO GROWTH AFTER 5 DAYS A&P Assessment and plan (1) Carotid stenosis, bilateral: (2) Left-sided extracranial carotid artery stenosis: (3) Morbid obesity: (4) Acute exacerbation of chronic obstructive airways disease: (5) Pneumonia: (6) CHF exacerbation: (7) Acute anemia: (8) Acute hypoxic respiratory failure: Plan Acute hypoxic respiratory failure -Secondary to COPD, pneumonia -De-escalate to prednisone 40 mg daily -Continue Rocephin, Zithromycin Acute anemia, concerns for slow GI bleed -On Pradaxa as outpatient currently on hold -No reported bloody black stools no hemodynamic, minus -Iron studies suggest iron deficiency anemia -For now monitor hemoglobin closely -consider EGD once respiratory status improves -Hold off on Pradaxa Carotid artery stenosis bilateral -Is on Pradaxa, on hold as above -On aspirin Full code # SCDs for DVT prophylaxis For today de-escalate steroids, de-escalate IV antibiotics plan to discharge in the next 24 hours PDMP PDMP Reviewed: Not Reviewed Attestations 2 Medical Necessity Statement*: Patient requires hospitalization for acute hypoxic respiratory failure secondary to COPD, pneumonia, acute anemia Diagnoses Carotid stenosis, bilateral I65.23 Left-sided extracranial carotid artery stenosis I65.22 Morbid obesity E66.01 Acute exacerbation of chronic obstructive airways disease J44.1 Pneumonia J18.9 CHF exacerbation I50.9 Acute anemia D64.9 Acute hypoxic respiratory failure J96.01
[2024-10-06 17:02] LABS: Glucose Point of Care 318 mg/dL (70-110)
[2024-10-06 20:44] LABS: Glucose Point of Care 314 mg/dL (70-110)
[2024-10-06] MEDS: duloxetine 60 mg Capsule PO (21:04)
[2024-10-06] MEDS: azithromycin 250 mg Tablet PO (21:04)
[2024-10-07] VITALS (9 sets, daily range): BP systolic 121–209; BP diastolic 72–109; PULSE 54–82; RESP 16–19; TEMP 36.8–36.9; O2SAT 93–97
[2024-10-07] MEDS: cefTRIAXone 2,000 mg SDV 1000 MG IVP (01:20)
[2024-10-07 02:54] LABS: Eosinophils % 0.1 %; Hematocrit 35.5 % (37-53); Lymphocytes # 1.1 10^3/uL (0.8-4.8); Lymphocytes % 9.8 %; Mean Corpuscular HGB Conc 28.7 g/dL (30-55); Mean Corpuscular Hemoglobin 23.8 pg (27-33); Mean Corpuscular Volume 82.8 fl (82-101); Mean Platelet Volume 10.8 fL (7.4-10.4); Monocytes # 1.4 10^3/uL (0.2-0.9); Monocytes % 11.7 %; Neutrophils # 8.93 10^3/uL (1.8-7.7); Neutrophils % 77.8 %; Nucleated Red Blood Cells % 0 %; Platelet Count 331 10^3/cmm (157-399); Red Blood Count 4.29 10^6/uL (3.85-5.65); Red Cell Distribution Width 16.4 % (12.1-15.1); White Blood Count 11.49 10^3/uL (3.29-11.43)
[2024-10-07 03:30] LABS: Anion Gap 11.1 (5-19); Blood Urea Nitrogen 33 mg/dL (8-23); Calcium 9.2 mg/dL (8.5-10.5); Carbon Dioxide 35 mmol/L (22-29); Chloride 94 mmol/L (98-107); Creatinine Clr Calc Pharmacy 66.6109; Glucose 171 mg/dL (65-115); NT Pro B Type Natriuretic Pept 2428 pg/mL (0-450); Osmolality Calculated 293 mOsm/kg (285-295); Potassium 4.1 mmol/L (3.5-5.1); Sodium 136 mmol/L (136-145)
[2024-10-07 06:26] LABS: Glucose Point of Care 153 mg/dL (70-110)
[2024-10-07] MEDS: budesonide 0.5 mg/2 mL Neb INHALATION (07:51)
[2024-10-07] MEDS: ipratropium-albuterol 3 mL Neb INHALATION (07:51)
[2024-10-07] MEDS: sucralfate 1 gm/10 mL Oral Liq UDC PO (08:08)
[2024-10-07] MEDS: spironolactone 25 mg Tablet 12.5 MG PO (08:08)
[2024-10-07] MEDS: metoprolol tartrate 50 mg Tablet PO (08:08)
[2024-10-07] MEDS: pantoprazole 40 mg SDV IVP (08:08)
[2024-10-07] MEDS: lisinopril 20 mg Tablet PO (08:08)
[2024-10-07] MEDS: predniSONE 20 mg Tablet 40 MG PO (08:08)
[2024-10-07] MEDS: cholecalciferol (vitamin D3) 1,000 unit Tablet 1000 UNIT PO (08:08)
[2024-10-07] MEDS: amlodipine 10 mg Tablet PO (08:08)
[2024-10-07] MEDS: guaiFENesin 600 mg Tablet PO (08:09)
[2024-10-07] MEDS: aspirin 81 mg EC Tablet PO (08:09)
[2024-10-07] MEDS: atorvastatin 40 mg Tablet 20 MG PO (08:09)
--- NOTE | 2024-10-07 10:32 | P.DS_ITS ---
Discharge Providers Date of Admission: 10/01/24 10:40 Date of Discharge: October 07, 2024 Attending Provider at Admission: Colton Burnett MD Attending Provider at Discharge: Colton Burnett MD Primary Care Provider: Jhoana Farmer APRN Diagnoses at Discharge Discharge Diagnosis (1) Carotid stenosis, bilateral: Status: Acute (2) Left-sided extracranial carotid artery stenosis: Status: Acute (3) Morbid obesity: Status: Acute (4) Acute exacerbation of chronic obstructive airways disease: Status: Acute (5) Pneumonia: Status: Acute (6) CHF exacerbation: Status: Acute (7) Acute anemia: Status: Acute (8) Acute hypoxic respiratory failure: Status: Acute Reason for Visit Reason for Visit: sob Hospital Course Hospital Course Justin Davis is a 74 year old male with a past medical history of COPD, CHF, history of right ICA stenosis status post right CEA and subsequent right ICA occlusion, right common carotid artery occlusion for which she is on Pradaxa, hypertension, hyperlipidemia who presents [facility] for shortness of breath. Patient reports shortness of breath for the last few days, does have a cough, no fevers, no chills does report edema, denies any lightheadedness, dizziness, no chest pain, no palpitations, he uses 2 L of oxygen at home currently up to 5 L, denies any hemoptysis, no bloody black stools reported Patient was admitted to [facility] for acute hypoxic respiratory failure, multifactorial, from COPD exacerbation, pneumonia, fluid overload/CHF, patient required IV steroids, IV antibiotics, patient overall clinically improved. Will be discharged on prednisone burst, Incruse, with close follow-up with primary care provider as outpatient. Patient's hospitalization was complicated -With acute anemia, concerns for slow GI bleed, iron studies suggest iron deficiency anemia, -Patient's Pradaxa was held, hemoglobin improved to 10.2 -No hemodynamic compromise, no bloody or black stools -I had a detailed discussion with patient and about the risks and benefits of holding anticoagulation given his history of carotid artery stenosis bilaterally. # Discussed with him that holding Pradaxa does carry an increased risk of strokes, carotid artery stenosis, and morbidity and mortality associated, however given his acute anemia he does have also a significant risk of morbidity and mortality associate with a GI bleed -Certainly this is a difficult decision, shared decision making -After discussing risk benefits of holding anticoagulation, he voiced understanding, all questions answered agreed to hold Pradaxa for now -He needs to have a EGD and colonoscopy within about a week -I have discharged him on Protonix and Carafate -Patient was advised if it having strokelike symptoms to call 911 -If he were to have any bloody or black stools to me to go to the emergency room Physical Exam Const: COMMON NORMALS: no acute distress and patient oriented x3 Resp: COMMON NORMALS: normal respiratory effort, No retractions, No use of accessory muscles and clear to auscultation bilaterally AUSCULTATION: clear to auscultation bilaterally Cardio: COMMON NORMALS: regular rate, regular rhythm, S1 normal heart sound present and S2 normal heart sound present RATE: regular rate RHYTHM: regular rhythm HEART SOUNDS: S1 normal heart sound present and S2 normal heart sound present GI: COMMON NORMALS: Normal to inspection, nondistended, normoactive bowel sounds present and non-tender Extremity: COMMON NORMALS: no pedal edema Neuro: COMMON NORMALS: patient oriented x3, CN's II-XII intact bilaterally and moves all extremities Psych: COMMON NORMALS: mental status grossly normal Discharge Data Studies Completed and Pending Completed Studies During Hospitalization Category Date Time Status CT angio chest PE protcl [id number] Routine Cat Scan 10/02/24 13:14 Completed XR chest 1V portable [id number] Stat Exams 10/01/24 08:37 Completed CV. echo complete* [id number] Stat Ultrasound 10/01/24 11:16 Completed Pending at discharge Category Date Time Status Basic Metabolic Panel AM LABS Lab 10/08/24 04:00 Ordered Complete Blood Count w/Auto AM LABS Lab 10/08/24 04:00 Ordered NT Pro B Type Natriuretic Pept QAM Lab 10/08/24 06:00 Ordered Occult Blood Stool [Immunochemical Fecal OCB] Routine Lab 10/01/24 10:33 Uncollected Occult Blood Stool [Immunochemical Fecal OCB] Routine Lab 10/01/24 11:06 Uncollected Sputum Culture and Gram Stain Stat Lab 10/01/24 11:06 Uncollected Radiology Impressions Chest X-Ray 10/01/24 08:37 IMPRESSION: 1. Cardiomegaly 2. Bibasilar and right midlung opacities which may relate to aspiration, atelectasis or early pneumonia particularly at the right lung base. 3. Mild small bilateral pleural effusions. Chest CTA 10/02/24 13:14 IMPRESSION: 1. Small bilateral pleural effusions with bilateral lower lobe atelectasis. 2. No acute infiltrates. Laboratory Results WBC 11.49 10^3/uL (3.29-11.43) H 10/07/24 02:48 RBC 4.29 10^6/uL (3.85-5.65) 10/07/24 02:48 Hgb 10.20 g/dL (11.27-16.99) L 10/07/24 02:48 Hct 35.5 % (37-53) L 10/07/24 02:48 MCV 82.8 fl (82-101) 10/07/24 02:48 MCH 23.8 pg (27-33) L 10/07/24 02:48 MCHC 28.7 g/dL (30-55) L 10/07/24 02:48 RDW 16.4 % (12.1-15.1) H 10/07/24 02:48 Plt Count 331 10^3/cmm (157-399) 10/07/24 02:48 MPV 10.8 fL (7.4-10.4) H 10/07/24 02:48 Neut % (Auto) 77.8 % 10/07/24 02:48 Lymph % (Auto) 9.8 % 10/07/24 02:48 [place]ink[place] % (Auto) 11.7 % 10/07/24 02:48 Eos % (Auto) 0.1 % 10/07/24 02:48 Baso % (Auto) 0.0 % 10/07/24 02:48 Neut # (Auto) 8.93 10^3/uL (1.8-7.7) H 10/07/24 02:48 Lymph # (Auto) 1.1 10^3/uL (0.8-4.8) 10/07/24 02:48 Winkler # (Auto) 1.4 10^3/uL (0.2-0.9) H 10/07/24 02:48 Eos # (Auto) 0.0 10^3/uL (0.0-0.8) 10/07/24 02:48 Baso # (Auto) 0.0 10^3/uL (0.0-0.1) 10/07/24 02:48 Nucleated RBC % (auto) 0 % 10/07/24 02:48 Nucleated RBCs # 0.0 /100WBC 10/07/24 02:48 Specimen Type Arterial 10/01/24 08:55 Sample Site Brachial, right 10/01/24 08:55 ABG pH 7.39 (7.35-7.45) 10/01/24 08:55 ABG pCO2 51.0 mmHg (35-45) H 10/01/24 08:55 ABG pO2 71.5 mmHg (80.0-100.0) L 10/01/24 08:55 ABG PO2/FiO2 Ratio 178 10/01/24 08:55 ABG HCO3 31.0 mmol/L (22-26) H 10/01/24 08:55 ABG O2 Saturation 93.7 10/01/24 08:55 ABG Base Excess 5.3 mmol/L (-2.0-2.0) H 10/01/24 08:55 Valdo Test N/a 10/01/24 08:55 A-a O2 Gradient 19.9 mmHg (5-10) H 10/01/24 08:55 Hematocrit 26.7 % (42-52) L 10/01/24 08:55 Hgb O2 Saturation 92.1 % (95-100) L 10/01/24 08:55 Carboxyhemoglobin 1.8 %THgb (0.4-20.1) 10/01/24 08:55 Methemoglobin 0.0 % (0.4-1.5) L 10/01/24 08:55 Total Hemoglobin 8.7 g/dL (14-18) L 10/01/24 08:55 Sodium 138.0 mmol/L (131-143) 10/01/24 08:55 Potassium 3.5 mmol/L (3.5-5.0) 10/01/24 08:55 Glucose 156.0 mg/dL (70-115) H 10/01/24 08:55 Ionized Calcium 1.2 mmol/L (1.1-1.4) 10/01/24 08:55 O2 Delivery Device Nc 10/01/24 08:55 O2 Liters/Min 5.0 % 10/01/24 08:55 FiO2 40.0 % 10/01/24 08:55 Livestock Sales Representative ID [id number] 10/01/24 08:55 Sodium 136 mmol/L (136-145) 10/07/24 02:48 Potassium 4.1 mmol/L (3.5-5.1) 10/07/24 02:48 Chloride 94 mmol/L (98-107) L 10/07/24 02:48 Carbon Dioxide 35 mmol/L (22-29) H 10/07/24 02:48 Anion Gap 11.1 (5-19) 10/07/24 02:48 BUN 33 mg/dL (8-23) H 10/07/24 02:48 Creatinine 1.1 mg/dL (0.7-1.2) 10/07/24 02:48 GFR Calculation Not Reportable 10/07/24 02:48 Glucose 171 mg/dL (65-115) H 10/07/24 02:48 POC Glucose 153 mg/dL (70-110) H 10/07/24 06:16 Estimat Average Glucose 108 10/01/24 08:50 Hemoglobin A1c 5.4 % (4.0-6.0) 10/01/24 08:50 Calculated Osmolality 293 mOsm/kg (285-295) 10/07/24 02:48 Calcium 9.2 mg/dL (8.5-10.5) 10/07/24 02:48 Phosphorus 3.4 mg/dL (2.5-4.5) 10/04/24 05:21 Magnesium 1.9 mg/dL (1.7-2.3) 10/04/24 05:21 Iron 27 ug/dL (59-158) L 10/01/24 08:50 Ferritin 16 ng/mL (30-400) L 10/01/24 08:50 Total Bilirubin 0.3 mg/dL (0.15-1.2) 10/04/24 05:21 AST 27 U/L (0-40) 10/04/24 05:21 ALT 37 U/L (0-41) 10/04/24 05:21 Alkaline Phosphatase 54 U/L (40-130) 10/04/24 05:21 Troponin T Baseline 32 ng/L (0-15) H 10/01/24 08:50 Troponin T 120 Minute 32.86 ng/L (0-15) H 10/01/24 10:26 Delta Troponin T 0.86 ABS# (0-10) 10/01/24 10:26 Troponin T Hi Sens 6Hr 30.17 ng/L (0-15) H 10/01/24 14:37 Troponin T Hi Sens 6Hr Delta -1.83 ng/L (0-12) L 10/01/24 14:37 C-Reactive Protein 46.0 mg/L (0.0-4.9) H 10/01/24 08:50 NT-Pro-B Natriuret Pep 2428 pg/mL (0-450) H 10/07/24 02:48 Total Protein 6.5 g/dL (6.6-8.7) L 10/04/24 05:21 Albumin 3.5 g/dL (3.5-5.2) 10/04/24 05:21 Globulin 3.0 g/dL (1.3-4.6) 10/04/24 05:21 Triglycerides 114 mg/dL (0-150) 10/01/24 08:50 Cholesterol 127 mg/dL (0-200) 10/01/24 08:50 LDL Cholesterol, Calc 57 mg/dL (50-129) 10/01/24 08:50 HDL Cholesterol 47 mg/dL (60-100) L 10/01/24 08:50 LDL/HDL Ratio 1.21 RATIO (0.00-3.22) 10/01/24 08:50 Cholesterol/HDL Ratio 2.70 mg/dL (1.0-5.00) 10/01/24 08:50 Procalcitonin 0.14 ng/mL (0-0.5) 10/01/24 08:50 Procalcitonin 0.14 ng/mL (0-0.5) 10/01/24 08:50 TSH 2.60 uIU/mL (0.27-4.20) 10/01/24 08:50 Urine Color Yellow (Yellow) 10/01/24 09:30 Urine Appearance Clear (CLEAR) 10/01/24 09:30 Urine pH 5.5 (5-7) 10/01/24 09:30 Ur Specific [place] 1.017 (1.005-1.030) 10/01/24 09:30 Urine Protein 1+ (Negative) A 10/01/24 09:30 Urine Glucose (UA) Negative (Normal) 10/01/24 09:30 Urine Ketones Negative (Negative) 10/01/24 09:30 Urine Blood Negative (Negative) 10/01/24 09:30 Urine Nitrate Negative (Negative) 10/01/24 09:30 Urine Bilirubin Negative (Negative) 10/01/24 09:30 Urine Urobilinogen 0.2 mg/dL (Negative) 10/01/24 09:30 Ur Leukocyte Esterase Trace (Negative) A 10/01/24 09:30 Urine RBC 0-2 /hpf (0-2) 10/01/24 09:30 Urine WBC 0-5 /hpf (0-5) 10/01/24 09:30 Ur Squamous Epith Cells 0-5 /hpf (0-5) 10/01/24 09:30 Amorphous Sediment Not Reportable 10/01/24 09:30 Urine Bacteria None seen /hpf (NONE) 10/01/24 09:30 Hyaline Casts 1.21 /lpf 10/01/24 09:30 Influenza A (PCR) Negative (Negative) 10/01/24 09:20 Influenza Type B (PCR) Negative (Negative) 10/01/24 09:20 RSV (PCR) Negative (Negative) 10/01/24 09:20 SARS-CoV-2 (PCR) Negative (Negative) 10/01/24 09:20 Vitals Last Vital Signs Temp 98.3 F 10/07/24 07:17 Pulse 58 L 10/07/24 08:03 Resp 16 10/07/24 07:52 BP 209/109 10/07/24 07:17 Pulse Ox 96 10/07/24 07:52 O2 Del Method Nasal Cannula 10/07/24 07:52 O2 Flow Rate 3 10/07/24 07:52 Discharge Plan Discharge Patient Disposition: Home Condition: Stable Prescriptions: New prednisone 20 mg Tablet 40 mg PO DAILY 5 Days Qty: 10 0RF spironolactone 25 mg Tablet 25 mg PO DAILY 30 Days Qty: 30 0RF amlodipine 10 mg Tablet 10 mg PO DAILY 30 Days Qty: 30 0RF benzonatate 100 mg Capsule 200 mg PO TID PRN (Reason: Cough) 5 Days Qty: 30 0RF sucralfate [Carafate] 1 gram tablet 1 g PO BID 28 Days Qty: 56 0RF pantoprazole [Protonix] 40 mg tablet,delayed release (DR/EC) 40 mg PO BID 30 Days Qty: 60 0RF Incruse Ellipta 62.5 mcg/actuation blister with device 1 inh inhalation DAILY Qty: 30 0RF Continued Asmanex Twisthaler 220 mcg/ actuation (120) aerosol powdr breath activated 2 inh inhalation DAILY simvastatin 40 mg tablet 40 mg PO DAILY metoprolol tartrate 50 mg tablet 50 mg PO BID cholecalciferol (vitamin D3) 25 mcg (1,000 unit) capsule 25 mcg PO DAILY hydrocodone-acetaminophen 7.5-325 mg tablet 1 tab PO Q6H PRN (Reason: Pain) aspirin 81 mg tablet,delayed release (DR/EC) 81 mg PO DAILY furosemide 20 mg tablet 20 mg PO DAILY cyclobenzaprine 5 mg tablet 5 mg PO BEDTIME PRN (Reason: muscle spasm) Qty: 10 0RF albuterol sulfate 90 mcg/actuation Hfa Aerosol Inhaler 2 puff INHALATION Q6H PRN (Reason: Shortness Of Breath) duloxetine [Cymbalta] 60 mg Capsule,Delayed Release(Dr/Ec) 60 mg PO BEDTIME Changed guaifenesin 400 mg tablet 400 mg PO TID PRN (Reason: congestion) Qty: 1 0RF lisinopril 20 mg tablet 20 mg PO Q12H 30 Days Qty: 60 0RF Held dabigatran etexilate [Pradaxa] 150 mg capsule 150 mg PO BID Hold Instructions: Resume on 10/24/24. hold until you complete EGD Discharge Orders: Discharge Order (Routine); Ordered 10/07/24 Ordered By: Colton Burnett Referrals: Jhoana Farmer, MILIEU MANAGER [Primary Care Provider] - 1 week (We have notified your physician's clinic of the need for a follow-up appointment to be scheduled. If you have not heard from them within the next 2 business days, please call them directly. ) Alex Al MD [Physician] - 4-7 days (need egd and colonoscopy for anemia We have notified your physician's clinic of the need for a follow-up appointment to be scheduled. If you have not heard from them within the next 2 business days, please call them directly. ) Hai Sánchez MD, MBBS, MPH [Referring] - 1 month (We have notified your physician's clinic of the need for a follow-up appointment to be scheduled. If you have not heard from them within the next 2 business days, please call them directly. ) Discharge Diet: Cardiac Discharge Activity: Resume usual activity Patient Instructions: Heart Failure (DC), Viral Pneumonia (DC), CHF Stoplight, Opioid Safety, Pneumonia Stoplight Activity Restrictions/Additional Instructions: - If you have any strokelike symptoms immediately call 911 -Please follow-up with general surgery in 1 week for EGD and colonoscopy -If you have worsening shortness of breath, please go to emergency room -Your Pradaxa is currently on hold, please resume it after discussion with general surgery about when EGD will be completed Discharge Attestations Time Spent in Discharge Care*: greater than 30 min Quality Metrics Clinical Quality Measures [ No reported AMI, CVA or VTE this stay] Coding Level of Care Code 79367 Diagnoses Carotid stenosis, bilateral I65.23 Left-sided extracranial carotid artery stenosis I65.22 Morbid obesity E66.01 Acute exacerbation of chronic obstructive airways disease J44.1 Pneumonia J18.9 CHF exacerbation I50.9 Acute anemia D64.9 Acute hypoxic respiratory failure J96.01
--- NOTE | 2024-10-07 10:34 | PC.NURSE ---
Walked with patient for a full ione around the floor. Pulse ox to finger demonstrated a desat to 87% about custodial through the walk heart rate tached up to 107. Patient stated he did not feel light headed and was mildly short of breath during the walk.
--- NOTE | 2024-10-07 10:56 | PC.SOCIAL ---
IMM Update Pg 2 of IMM Updated and reviewed w/ patient and his . Copy provided and copy dated, initialed and placed in chart.
--- NOTE | 2024-10-07 11:22 | PC.NURSE ---
Discharge Note Patient discharged to home via private vehicle accompanied by . Discharge instructions reviewed with patient and/or self pay representative. Mobile pharmacy medications and/or prescriptions provided. Belongings/home medications returned.
[2024-10-07 11:29] LABS: Glucose Point of Care 161 mg/dL (70-110)
== END 2024-10-07 11:25 | disposition home or self-care (01) | DRG 193 ==
LOC: ER 11:02 → ER IP 11:58 → MEDSURG 20:03
PROVIDERS: Internal Medicine; Admitting Provider Family Medicine; Emergency Provider Family Medicine; PCP Nurse Practitioner Family; Visit Provider Family Medicine
DX: J18.9 Pneumonia, unspecified organism (principal); I50.33 Acute on chronic diastolic (congestive) heart failure; J96.01 Acute respiratory failure with hypoxia; J44.0 Chronic obstructive pulmonary disease with (acute) lower respiratory infection; J44.1 Chronic obstructive pulmonary disease with (acute) exacerbation; Z68.41 Body mass index [BMI] 40.0-44.9, adult; I65.23 Occlusion and stenosis of bilateral carotid arteries; E66.01 Morbid (severe) obesity due to excess calories; D50.9 Iron deficiency anemia, unspecified; E78.5 Hyperlipidemia, unspecified; Z11.52 Encounter for screening for COVID-19; Z79.899 Other long term (current) drug therapy; Z99.81 Dependence on supplemental oxygen; Z79.82 Long term (current) use of aspirin; Z87.891 Personal history of nicotine dependence; Z79.01 Long term (current) use of anticoagulants
CPT/HCPCS: 36415; 36416; 36600; 71045; 71275; 80048; 80051; 80053; 80061; 81001; 82330; 82728; 82805; 82962; 83036; 83540; 83735; 83880; 84100; 84145; 84443; 84484; 85014; 85018; 85025; 86140; 87040; 87637; 92526; 92610; 93005; 93306; 94640; 94664; 96365; 96372; 96375; 99285; J0360; J0456; J0696; J1100; J1815; J1940; J2470; J2543; J2919; J7050; J7512; J7626; J9999; Q0144

== ENCOUNTER → 2024-10-19 12:42 | Outpatient (BNVA) | payer OTHER, SELFPAY | PROVIDERS: PCP Nurse Practitioner Family; Visit Provider Surgery | DX: D64.9 Anemia, unspecified (principal) | CPT/HCPCS: 99204 ==